=== PATIENT | female | born 1995 | race Caucasian/White ===

== ENCOUNTER → 2021-02-17 09:31 | Outpatient (CLI) | payer OTHER, SELFPAY ==
[2021-02-17 20:33] LABS: SARS-CoV-2 RNA PCR Positive
== END ==
PROVIDERS: PCP Family Medicine; Visit Provider Physician Assistant
DX: U07.1 COVID-19 (principal)
CPT/HCPCS: C9803; U0003; U0005

== ENCOUNTER 2021-07-20 10:56 | Outpatient (CLI) | payer OTHER, SELFPAY ==
[2021-07-20 11:57] VITALS: BP 145/74; PULSE 112
[2021-07-20 12:01] VITALS: BP 133/79; PULSE 104
[2021-07-20 12:04] LABS: Basophils Percent Auto 0.3 % (0.2-1.2); Eosinophils Absolute Auto 0.2 K/mm3 (0-0.3); Eosinophils Percent Auto 1.6 % (0-4.4); Hematocrit 34.1 % (37.0-47.0); Hemoglobin 10.7 g/dL (12.0-15.0); Immature Granulocyte Absolute 0.06 K/mm3 (0.00-0.031); Immature Granulocyte Percent A 0.7 % (0-0.5); Lymphocytes Absolute Auto 1.11 K/mm3 (0.9-3.2); Mean Corpuscular HGB Conc 31.4 g/dl (32-36); Mean Corpuscular Hemoglobin 27.3 pg (26-34); Mean Platelet Volume 11.3 fl (7.4-10.4); Monocytes Absolute Auto 0.5 K/mm3 (0.1-0.6); Monocytes Percent Auto 5.1 % (2.6-8.5); Neutrophils Absolute Auto 7.4 K/mm3 (1.3-6.7); Neutrophils Percent Auto 80.3 % (45.5-73.1); Platelet Count Result 248 k/mm3 (150-375); Red Blood Count 3.92 M/mm3 (4.2-5.4); Red Cell Distribution Width 16.5 % (11.5-14.5); White Blood Count 9.2 K/mm3 (4.5-10.0)
[2021-07-20 12:07] LABS: Add Urine Microscopic? YES; Appearance Urine Clear (Clear); Bilirubin Urine Negative (Negative); Blood Urine Negative (Negative); Color Urine Yellow (Yellow); Glucose Urine UA Negative (Negative); Ketones Urine Negative (Negative); Leukocyte Esterase Ur 1+ LEU/UL (NEGATIVE); Nitrate Urine Negative (Negative); Protein Urine Negative (Negative); Urobilinogen Urine 0.2 mg/dL (<2.0); pH Urine 6.5 (5.0-9.0)
[2021-07-20 12:12] LABS: Bacteria Urine Trace /hpf; Mucus Urine Rare /lpf; RBC Urine 0-2 /hpf (0-2); Squamous Epithelial Cell Urine Occasional /hpf (Few); WBC Urine 0-3 /hpf (0-3)
[2021-07-20 12:15] LABS: Creatinine Urine 29.5 mg/dL; Total Protein Urine Random 12 mg/dL; Ur Ttl Prot Creatinine Ratio 0.41 mg/mg (0-0.20)
[2021-07-20 12:16] VITALS: BP 135/80; PULSE 105
[2021-07-20 12:27] LABS: Alanine Aminotransferase 12 U/L (6-35); Albumin Level 3.4 g/dL (3.5-5.1); Alkaline Phosphatase 102 U/L (38-126); Anion Gap 6 mmol/L (8-16); Aspartate Amino Transferase 19 U/L (14-36); Bilirubin,Total 0.2 mg/dL (0.2-1.3); Blood Urea Nitrogen 6 mg/dL (7-17); Calcium 8.5 mg/dL (8.4-10.2); Carbon Dioxide 23 mmol/L (22-30); Chloride 105 mmol/L (98-107); Estimated Glomerular Filt Rate > 60; Glucose 148 mg/dL (65-110); Potassium 3.6 mmol/L (3.4-5.0); Sodium 134 mmol/L (137-145); Uric Acid 4.4 mg/dL (2.5-7.5)
[2021-07-20 12:31] VITALS: BP 134/75; PULSE 100
[2021-07-20 12:46] VITALS: BP 142/106; PULSE 99
[2021-07-20 13:08] LABS: HIV 1/2 Ab P24 Ag Result Negative (Negative)
== END 2021-07-20 12:55 | disposition home or self-care (01) ==
LOC: ANHOBOP 11:18 → ANHOBPP 11:19
PROVIDERS: PCP Family Medicine; Visit Provider Student in an Organized Health Care Education/Training Program
DX: O13.3 Gestational [pregnancy-induced] hypertension without significant proteinuria, third trimester (principal); Z3A.32 32 weeks gestation of pregnancy
CPT/HCPCS: 36415; 59025; 80053; 81001; 82570; 84156; 84550; 85025; 86703; 87086; 99199; G0432

== ENCOUNTER 2021-07-21 12:04 | Outpatient (NON) | payer OTHER, SELFPAY ==
[2021-07-21 12:50] VITALS: BMI 54.2
[2021-07-21 13:40] LABS: Collection Time Urine 24 HOURS
[2021-07-21 13:45] LABS: Specific Gravity Ur 1.015; Total Volume 24 Hour Urine 2500 ml
[2021-07-21 14:24] LABS: Creatinine Clearance Urine 167.2 ml/min (75-125); Creatinine Urine 61.1 mg/dL; Patient Weight 287 Lbs; Total Protein Urine 24 Hr 300 mg/24hr (28-141); Total Protein Urine Random 12 mg/dL
== END 2021-07-21 12:05 | disposition home or self-care (01) ==
LOC: ANHOBOP 12:44
PROVIDERS: PCP Family Medicine; Visit Provider Student in an Organized Health Care Education/Training Program
DX: R03.0 Elevated blood-pressure reading, without diagnosis of hypertension (principal)
CPT/HCPCS: 81050; 82575; 84156

== ENCOUNTER 2021-07-30 06:37 | Outpatient (CLI) | payer OTHER, SELFPAY ==
[2021-07-30 06:54] VITALS: BP 151/84; PULSE 116
[2021-07-30 07:15] LABS: Appearance Urine Clear (Clear); Basophils Percent Auto 0.2 % (0.2-1.2); Bilirubin Urine Negative (Negative); Blood Urine Negative (Negative); Color Urine Yellow (Yellow); Eosinophils Absolute Auto 0.2 K/mm3 (0-0.3); Eosinophils Percent Auto 1.7 % (0-4.4); Glucose Urine UA Negative (Negative); Hematocrit 34.1 % (37.0-47.0); Hemoglobin 11.2 g/dL (12.0-15.0); Immature Granulocyte Absolute 0.05 K/mm3 (0.00-0.031); Immature Granulocyte Percent A 0.5 % (0-0.5); Ketones Urine Negative (Negative); Leukocyte Esterase Ur Trace LEU/UL (NEGATIVE); Lymphocytes Absolute Auto 1.33 K/mm3 (0.9-3.2); Lymphocytes Percent Auto 13.5 % (18.3-44.2); Mean Corpuscular HGB Conc 32.8 g/dl (32-36); Mean Corpuscular Hemoglobin 28.1 pg (26-34); Mean Corpuscular Volume 85.5 fl (80-100); Mean Platelet Volume 11.5 fl (7.4-10.4); Monocytes Absolute Auto 0.7 K/mm3 (0.1-0.6); Monocytes Percent Auto 6.6 % (2.6-8.5); Neutrophils Absolute Auto 7.7 K/mm3 (1.3-6.7); Neutrophils Percent Auto 77.5 % (45.5-73.1); Nitrate Urine Negative (Negative); Platelet Count Result 245 k/mm3 (150-375); Protein Urine 1+ mg/dL (Negative); Red Blood Count 3.99 M/mm3 (4.2-5.4); Red Cell Distribution Width 16.1 % (11.5-14.5); Specific Grav Ur 1.025 (1.001-1.035); Urobilinogen Urine 0.2 mg/dL (<2.0); White Blood Count 9.9 K/mm3 (4.5-10.0); pH Urine 6.5 (5.0-9.0)
[2021-07-30 07:16] VITALS: BP 150/76; PULSE 107
[2021-07-30 07:20] VITALS: TEMP 36.1
[2021-07-30 07:20] LABS: Bacteria Urine Trace /hpf; Mucus Urine Rare /lpf; RBC Urine 0-2 /hpf (0-2); Squamous Epithelial Cell Urine Few /hpf (Few); WBC Urine 0-3 /hpf (0-3)
[2021-07-30 07:27] LABS: Alanine Aminotransferase 12 U/L (6-35); Albumin Level 3.5 g/dL (3.5-5.1); Alkaline Phosphatase 106 U/L (38-126); Anion Gap 7 mmol/L (8-16); Aspartate Amino Transferase 18 U/L (14-36); Bilirubin,Total 0.2 mg/dL (0.2-1.3); Blood Urea Nitrogen 7 mg/dL (7-17); Calcium 8.9 mg/dL (8.4-10.2); Carbon Dioxide 23 mmol/L (22-30); Chloride 106 mmol/L (98-107); Estimated Glomerular Filt Rate > 60; Glucose 135 mg/dL (65-110); Potassium 3.9 mmol/L (3.4-5.0); Sodium 136 mmol/L (137-145); Uric Acid 4.8 mg/dL (2.5-7.5)
[2021-07-30 07:29] LABS: Add Urine Microscopic? YES
[2021-07-30 07:31] VITALS: BP 135/68; PULSE 109
--- NOTE | 2021-07-30 07:45 | PC.NURSE ---
Dr. Cuevas called with labs, vs and assessment. Pt denies RUQ pain, no visual changes. Discharge orders obtained.
[2021-07-30 07:46] VITALS: BP 144/81; PULSE 101
[2021-07-30 07:55] VITALS: BP 144/81; PULSE 104
[2021-07-30 10:54] LABS: Creatinine Urine 209.5 mg/dL; Total Protein Urine Random 18 mg/dL; Ur Ttl Prot Creatinine Ratio 0.09 mg/mg (0-0.20)
== END 2021-07-30 07:59 | disposition home or self-care (01) ==
LOC: ANHOBOP 06:40 → ANHOBPP 06:40
PROVIDERS: Obstetrics & Gynecology; PCP Family Medicine; Visit Provider Student in an Organized Health Care Education/Training Program
DX: O13.9 Gestational [pregnancy-induced] hypertension without significant proteinuria, unspecified trimester (principal); Z3A.00 Weeks of gestation of pregnancy not specified
CPT/HCPCS: 36415; 59025; 80053; 81001; 82570; 84112; 84156; 84550; 85025; 87086; 99199

== ENCOUNTER 2021-08-02 10:53 | Outpatient (RCR) | payer OTHER, SELFPAY ==
[2021-08-01] MEDS: BETAMETHASONE SOD PHOS/ACETATE 30 MG/5 ML VIAL 12 MG IM (11:24)
[2021-08-02] MEDS: BETAMETHASONE SOD PHOS/ACETATE 30 MG/5 ML VIAL 12 MG IM (11:07)
== END 2021-08-02 11:11 | disposition home or self-care (01) ==
LOC: ANHOBOP 10:53
PROVIDERS: PCP Family Medicine; Visit Provider Student in an Organized Health Care Education/Training Program
DX: O36.8990 Maternal care for other specified fetal problems, unspecified trimester, not applicable or unspecified (principal); Z3A.00 Weeks of gestation of pregnancy not specified
CPT/HCPCS: 59025; 76815; 76819; 96372; J0702

== ENCOUNTER 2021-08-15 07:32 | Outpatient (RCR) | payer OTHER, SELFPAY ==
--- NOTE | 2021-08-01 10:39 | PC.NURSE ---
Dr Cuevas notified of contractions, sve ordered. No need to repeat labs from this weekend.
[2021-08-01 10:43] VITALS: BP 152/67; PULSE 100
[2021-08-08 08:01] VITALS: BP 103/88; PULSE 94
[2021-08-08 08:04] LABS: Hematocrit 35.4 % (37.0-47.0); Hemoglobin 11.2 g/dL (12.0-15.0); Mean Corpuscular HGB Conc 31.6 g/dl (32-36); Mean Corpuscular Hemoglobin 27.6 pg (26-34); Mean Corpuscular Volume 87.2 fl (80-100); Mean Platelet Volume 11.7 fl (7.4-10.4); Platelet Count Result 237 k/mm3 (150-375); Red Blood Count 4.06 M/mm3 (4.2-5.4); Red Cell Distribution Width 16.2 % (11.5-14.5)
[2021-08-08 08:14] LABS: Alanine Aminotransferase 12 U/L (6-35); Albumin Level 3.4 g/dL (3.5-5.1); Alkaline Phosphatase 102 U/L (38-126); Anion Gap 5 mmol/L (8-16); Aspartate Amino Transferase 17 U/L (14-36); Bilirubin,Total < 0.1 mg/dL (0.2-1.3); Blood Urea Nitrogen 8 mg/dL (7-17); Calcium 9.1 mg/dL (8.4-10.2); Carbon Dioxide 24 mmol/L (22-30); Chloride 103 mmol/L (98-107); Estimated Glomerular Filt Rate > 60; Glucose 157 mg/dL (65-110); Potassium 4.3 mmol/L (3.4-5.0); Sodium 132 mmol/L (137-145)
[2021-08-08 08:16] VITALS: BP 103/48; PULSE 103
[2021-08-08 08:18] LABS: Uric Acid 4.2 mg/dL (2.5-7.5)
[2021-08-08 08:30] VITALS: BP 119/63; PULSE 85
--- NOTE | 2021-08-08 08:40 | PC.NURSE ---
Dr. Salguero updated with strip, bp and labs. Dr. Salguero aware [facility] not back yet. Okay for pt to go home.
[2021-08-08 08:48] VITALS: BP 103/88; PULSE 103
[2021-08-08 11:37] LABS: Lactate Dehydrogenase 322 U/L (313-618)
--- NOTE | ~2021-08-15 | US_ITS ---
EXAMINATION: US OB limited w BPP DATE: 08/01/2021 10:23 INDICATION: Hypertension. Third trimester. TECHNIQUE: Real-time pelvic ultrasound was performed. COMPARISON: None. FINDINGS: There is a single living fetus in vertex presentation. The placenta is anterior. heart rate is 157 beats per minute (bpm). The index fluid index is 13.1 cm, which is normal. Biophysical profile performed by the technologist: breathing (30 sec sustained breathing in 30 minutes): 2 out of 2 movement (3 gross body movements in 30 minutes): 2 out of 2 tone (one episode of ghuhjmm-fkpuhuhzk-amarfrr limb movement): 2 out of 2 Amniotic fluid pocket (2 cm): 2 out of 2 Total score: 8 out of 8 IMPRESSION: 1. Single living fetus in vertex presentation. 2. Biophysical profile 8 out of 8. Reviewed, dictated and finalized at location B.
[2021-08-15 08:05] LABS: Basophils Percent Auto 0.4 % (0.2-1.2); Eosinophils Absolute Auto 0.1 K/mm3 (0-0.3); Eosinophils Percent Auto 1.5 % (0-4.4); Hematocrit 35.5 % (37.0-47.0); Hemoglobin 11.4 g/dL (12.0-15.0); Immature Granulocyte Absolute 0.05 K/mm3 (0.00-0.031); Immature Granulocyte Percent A 0.6 % (0-0.5); Lymphocytes Percent Auto 17.6 % (18.3-44.2); Mean Corpuscular HGB Conc 32.1 g/dl (32-36); Mean Corpuscular Hemoglobin 27.6 pg (26-34); Mean Platelet Volume 11.7 fl (7.4-10.4); Monocytes Absolute Auto 0.6 K/mm3 (0.1-0.6); Neutrophils Absolute Auto 6.6 K/mm3 (1.3-6.7); Neutrophils Percent Auto 72.9 % (45.5-73.1); Platelet Count Result 241 k/mm3 (150-375); Red Blood Count 4.13 M/mm3 (4.2-5.4); Red Cell Distribution Width 15.5 % (11.5-14.5); White Blood Count 9.1 K/mm3 (4.5-10.0)
[2021-08-15 08:17] LABS: Alanine Aminotransferase 10 U/L (6-35); Alkaline Phosphatase 108 U/L (38-126); Anion Gap 3 mmol/L (8-16); Aspartate Amino Transferase 16 U/L (14-36); Bilirubin,Total < 0.1 mg/dL (0.2-1.3); Blood Urea Nitrogen 11 mg/dL (7-17); Calcium 9.1 mg/dL (8.4-10.2); Carbon Dioxide 23 mmol/L (22-30); Chloride 105 mmol/L (98-107); Estimated Glomerular Filt Rate > 60; Glucose 114 mg/dL (65-110); Lactate Dehydrogenase 305 U/L (313-618); Potassium 4.3 mmol/L (3.4-5.0); Sodium 131 mmol/L (137-145); Uric Acid 5.6 mg/dL (2.5-7.5)
[2021-08-15 08:41] VITALS: BP 158/89; PULSE 103
== END 2021-08-30 10:51 | disposition home or self-care (01) ==
LOC: ANHOBOP 07:32
PROVIDERS: PCP Family Medicine; Visit Provider Student in an Organized Health Care Education/Training Program
DX: O16.3 Unspecified maternal hypertension, third trimester (principal); Z3A.34 34 weeks gestation of pregnancy
CPT/HCPCS: 36415; 59025; 76815; 76819; 80053; 83615; 84550; 85025; 85027

== ENCOUNTER 2021-08-19 00:01 | Inpatient (IN) | payer OTHER, SELFPAY ==
[2021-08-19] VITALS (95 sets, daily range): BP systolic 107–162; BP diastolic 56–102; PULSE 99–121; TEMP 36.3–36.6; O2SAT 91–100; BMI 54.8
[2021-08-19 00:33] LABS: Basophils Percent Auto 0.2 % (0.2-1.2); Eosinophils Absolute Auto 0.1 K/mm3 (0-0.3); Eosinophils Percent Auto 1.2 % (0-4.4); Hematocrit 37.4 % (37.0-47.0); Hemoglobin 11.9 g/dL (12.0-15.0); Immature Granulocyte Absolute 0.08 K/mm3 (0.00-0.031); Immature Granulocyte Percent A 0.8 % (0-0.5); Lymphocytes Absolute Auto 1.99 K/mm3 (0.9-3.2); Lymphocytes Percent Auto 18.8 % (18.3-44.2); Mean Corpuscular HGB Conc 31.8 g/dl (32-36); Mean Corpuscular Hemoglobin 27.7 pg (26-34); Mean Platelet Volume 12.3 fl (7.4-10.4); Monocytes Absolute Auto 0.7 K/mm3 (0.1-0.6); Monocytes Percent Auto 6.8 % (2.6-8.5); Neutrophils Absolute Auto 7.7 K/mm3 (1.3-6.7); Neutrophils Percent Auto 72.2 % (45.5-73.1); Platelet Count Result 239 k/mm3 (150-375); Red Cell Distribution Width 15.7 % (11.5-14.5); White Blood Count 10.6 K/mm3 (4.5-10.0)
--- NOTE | 2021-08-19 00:33 | LDADM ---
This patient, Candace Green, was admitted to Labor/Delivery/Recovery 105 on 08/18/21 at 00:01. Plans for labor, pain management and were discussed with patient. Patient/family oriented to hospital policies and general routines including ID bracelet, bed and alarms, visiting hours, pain management, procedures, bathroom and other care routines, personal items, smoking policy, room service/diet and guest tray routines, security routines, and visiting hours. Patient/Family are encouraged to report perceived risks to care and to ask questions if they do not understand what they are told or what they should do. See OBIX for further documentation.
[2021-08-19 00:41] LABS: Uric Acid 6.4 mg/dL (2.5-7.5)
[2021-08-19 01:01] LABS: Potassium 4.1 mmol/L (3.4-5.0)
[2021-08-19 01:05] LABS: Alanine Aminotransferase 12 U/L (6-35); Albumin Level 3.3 g/dL (3.5-5.1); Alkaline Phosphatase 116 U/L (38-126); Anion Gap 4 mmol/L (8-16); Aspartate Amino Transferase 18 U/L (14-36); Bilirubin,Total < 0.1 mg/dL (0.2-1.3); Blood Urea Nitrogen 17 mg/dL (7-17); Calcium 9.4 mg/dL (8.4-10.2); Carbon Dioxide 25 mmol/L (22-30); Chloride 107 mmol/L (98-107); Estimated CRCL calculation 135 ml/min; Estimated Glomerular Filt Rate > 60; Glucose 90 mg/dL (65-110); Sodium 136 mmol/L (137-145)
[2021-08-19] MEDS: DINOPROSTONE 10 MG VAG INSERT VAGINAL (01:13)
[2021-08-19 07:35] LABS: Rapid Plasma Reagin Non-Reactive (NonReactive)
--- NOTE | 2021-08-19 12:55 | PM.IMHP ---
H&P: HPI History of Present Illness Date/Time: 08/19/21 12:55 Chief Complaint: Preeclampsia Narrative: Patient is a 25-year-old LMP 12/03/2020 currently 37 weeks gestation with TAURUS 09/09/21. Patient is dated by LMP consistent with ultrasound on 02/03/2021 at 8 weeks gestation. Patient presents to labor and delivery for scheduled induction of labor secondary to preeclampsia without severe features. Patient was diagnosed with preeclampsia several weeks ago. She has been monitored closely and decision was made to proceed with delivery at 37 weeks gestation. In general, patient doing well without complaints. Denies any headache, chest pain, shortness of breath, nausea, vomiting, right upper quadrant tenderness, or visual disturbances. Patient also denies any vaginal bleeding, leakage of fluid, or contractions. Reports good movement. Review of Systems Review of Systems: All systems reviewed & are unremarkable except as noted in HPI and below Constitutional: Constitutional: Reports as per HPI and Reports no additional constitutional complaints Eyes: Eyes: Reports as per HPI and Reports no additional eye complaints ENT: Reports system reviewed and no additional complaints, except as documented and Reports as per HPI Cardiovascular: Cardiovascular: Reports as per HPI and Reports no additional cardiovascular complaints Respiratory: Respiratory: Reports as per HPI and Reports no additional respiratory complaints Gastrointestinal: Gastrointestinal: Reports as per HPI and Reports no additional gastrointestinal complaints Genitourinary: Genitourinary: Reports no additional female genitourinary complaints and Reports as per HPI Musculoskeletal: Musculoskeletal: Reports no additional musculoskeletal complaints and Reports as per HPI Integumentary/Breasts: Skin/Breast: Reports system reviewed and no additional complaints, except as docu and Reports as per HPI Neurologic: Reports system reviewed and no additional complaints, except as documented and Reports as per HPI Psychiatric: Psychiatric: Reports no additional psychiatric complaints and Reports as per HPI Endocrine: Endocrine: Reports no additional endocrine complaints and Reports as per HPI Hematologic/Lymphatic: Hematologic/Lymphatic: Reports no additional hematologic/lymphatic complaints and Reports as per HPI Allergic/Immunologic: Allergic/Immunologic: Reports no additional allergic/immunologic complaints and Reports as per HPI PMF Past Medical History Medical History Depression Seasonal allergies Surgical History Surgical History [place] teeth removed 2014 Family History Family History Grandparent Diabetes mellitus Family history of lung cancer Mother Diabetes mellitus Melanoma Social History Social History Smoking status: Never smoker Second hand tobacco smoke exposure: No Alcohol intake: never Substance use: never Substance use type: does not use Gender identity (if verbalized by the patient): Female Spiritual care concerns: No Meds Home Medications and Allergies Home Medications Medication Instructions Recorded Confirmed Type prenat.vits,manfred,zis-mfac-xzwdn 1 tablet PO DAILY 11/04/20 08/19/21 History cetirizine 10 mg tablet (Zyrtec) 10 mg PO DAILY PRN Allergy Symptoms 11/29/20 08/19/21 History ferrous sulfate 325 mg (65 mg 325 mg PO DAILY #90 tabs 06/06/21 08/19/21 Rx iron) tablet sertraline 100 mg tablet 100 mg PO DAILY #30 tabs 06/14/21 08/19/21 Rx cholecalciferol (vitamin D3) 50 50 mcg PO DAILY 08/11/21 08/19/21 History mcg (2,000 unit) tablet (Vitamin D3) Allergies Allergy/AdvReac Type Severity Reaction Status Date / Time No Known Allergies Allergy Verified 08/19/21 00:55 Vital Sig
[2021-08-19] MEDS: LACTATED RINGERS 1,000 ML 125 ML IV CONT ×2 (14:32→22:07)
[2021-08-19] MEDS: OXYTOCIN 30 UNITS/NS 500 ML 30 UNITS/500 ML BAG 6 UNITS IV CONT (14:33)
--- NOTE | 2021-08-19 17:37 | PM.OBPNLAB ---
Pain Control Date/time seen: 08/19/21 17:37 Comments: Patient doing well. Reports feeling contractions a little bit. Pelvic Exam Comments: 2.5/70/-2, AROM performed, clear fluid noted Status Comments: EFM category 1 [place]: ctx 2-4 mins. Assessment and Plan Comments: Continue pitocin Continuous EFM and toco Monitor vitals and symptoms Pain management PRN
--- NOTE | 2021-08-19 18:25 | WPDANESEPP ---
Anes - Eval Pre Procedure Procedure: Labor epidural Date/Time: 08/19/21 18:25 Surgeon: jeremiah Pre Op Diagnosis: Induction of Labor Patient Data Age: 25 Gender: F Height: 1.55 m Weight: 131.75 kg Last Vital Signs Temp 36.3 C L 08/19/21 18:20 Pulse 101 H 08/19/21 18:01 BP 157/79 H 08/19/21 18:01 O2 Del Method Room Air 08/19/21 00:28 Allergies Allergy/AdvReac Type Severity Reaction Status Date / Time No Known Allergies Allergy Verified 08/19/21 00:55 Home Medications Medication Instructions Recorded Confirmed Type prenat.vits,manfred,opx-iquv-cpsko 1 tablet PO DAILY 11/04/20 08/19/21 History cetirizine 10 mg tablet (Zyrtec) 10 mg PO DAILY PRN Allergy Symptoms 11/29/20 08/19/21 History ferrous sulfate 325 mg (65 mg 325 mg PO DAILY #90 tabs 06/06/21 08/19/21 Rx iron) tablet sertraline 100 mg tablet 100 mg PO DAILY #30 tabs 06/14/21 08/19/21 Rx cholecalciferol (vitamin D3) 50 50 mcg PO DAILY 08/11/21 08/19/21 History mcg (2,000 unit) tablet (Vitamin D3) Laboratory Tests 08/19/21 08/19/21 08/19/21 00:26 00:26 00:26 WBC 10.6 K/mm3 H K/mm3 (4.5-10.0) RBC 4.30 M/mm3 M/mm3 (4.2-5.4) Hgb 11.9 g/dL L g/dL (12.0-15.0) Hct 37.4 % % (37.0-47.0) MCV 87.0 fl fl (80-100) MCH 27.7 pg pg (26-34) MCHC 31.8 g/dl L g/dl (32-36) RDW 15.7 % H % (11.5-14.5) Plt Count 239 k/mm3 k/mm3 (150-375) MPV 12.3 fl H fl (7.4-10.4) Immature Gran % (Auto) 0.8 % H % (0-0.5) Neut % (Auto) 72.2 % % (45.5-73.1) Lymph % (Auto) 18.8 % % (18.3-44.2) [place] % (Auto) 6.8 % % (2.6-8.5) Eos % (Auto) 1.2 % % (0-4.4) Baso % (Auto) 0.2 % % (0.2-1.2) Lymph # (Auto) 1.99 K/mm3 K/mm3 (0.9-3.2) [place] # (Auto) 0.7 K/mm3 H K/mm3 (0.1-0.6) Eos # (Auto) 0.1 K/mm3 K/mm3 (0-0.3) Baso # (Auto) 0.0 K/mm3 K/mm3 (0.0-0.1) Abs Immat Gran (auto) 0.08 K/mm3 H K/mm3 (0.00-0.031) Absolute Neuts (auto) 7.7 K/mm3 H K/mm3 (1.3-6.7) Absolute Nucleated RBC 0.0 K/mm3 K/mm3 (0.0-0.012) Nucleated RBC % 0.0 % % (0.0-0.2) Sodium Potassium Chloride Carbon Dioxide Anion Gap BUN Creatinine Estim Creat Clear Calc Estimated GFR Glucose Uric Acid 6.4 mg/dL mg/dL (2.5-7.5) Calcium Total Bilirubin AST ALT Alkaline Phosphatase Total Protein Albumin RPR Non-reactive (NonReactive) Blood Type Antibody Screen 08/19/21 08/19/21 00:26 00:48 WBC RBC Hgb Hct MCV MCH MCHC RDW Plt Count MPV Immature Gran % (Auto) Neut % (Auto) Lymph % (Auto) [place] % (Auto) Eos % (Auto) Baso % (Auto) Lymph # (Auto) [place] # (Auto) Eos # (Auto) Baso # (Auto) Abs Immat Gran (auto) Absolute Neuts (auto) Absolute Nucleated RBC Nucleated RBC % Sodium 136 mmol/L L mmol/L (137-145) Potassium 4.1 mmol/L mmol/L (3.4-5.0) Chloride 107 mmol/L mmol/L (98-107) Carbon Dioxide 25 mmol/L mmol/L (22-30) Anion Gap 4 mmol/L L mmol/L (8-16) BUN 17 mg/dL mg/dL (7-17) Creatinine 0.70 mg/dL mg/dL (0.7-1.0) Estim Creat Clear Calc 135 ml/min ml/min Estimated GFR > 60 (59 - ) Glucose 90 mg/dL mg/dL (65-110) Uric Acid Calcium 9.4 mg/dL mg/dL (8.4-10.2) Total Bilirubin < 0.1 mg/dL L mg/dL (0.2-1.3) AST 18 U/L U/L (14-36) ALT 12 U/L
[2021-08-20] VITALS (250 sets, daily range): BP systolic 89–158; BP diastolic 52–126; PULSE 88–118; RESP 13–18; TEMP 36.1–37.2; O2SAT 89–100
[2021-08-20] MEDS: LACTATED RINGERS 1,000 ML 125 ML IV CONT (05:09)
[2021-08-20] MEDS: LORATADINE 10 MG TABLET PO (07:00)
--- NOTE | 2021-08-20 08:56 | PM.OBPNLAB ---
Pain Control Date/time seen: 08/20/21 08:56 Patient doing well s/p epidural. Asymptomatic. Pelvic Exam Comments: /-2, moderate caput noted Status Comments: EFM category 1 [place] shows contractions q2-[address] Assessment and Plan Comments: SVE essentially unchanged for almost seven hours, however, pitocin was decreased periodically for periods of tachysystole and subsequently increased when resolved. Situation discussed with patient regarding minimal cervical change and development of caput, which may indicate that a vaginal delivery is becoming less likely. Plan at this time is to continue pitocin for an additional 2-3 hours and reevaluate. If cervical exam remains unchanged at that time, will likely recommend proceeding with section for delivery. Patient made aware of this tentative plan, implied an understanding, and agrees. Will begin GBS prophylaxis at 18 hours ruptured. Continue to monitor vitals and symptoms. BP currently WNL.
[2021-08-20] MEDS: AMPICILLIN 2 GM/NS 100 ML 2 GM/100 ML BAG IVPB (11:30)
--- NOTE | 2021-08-20 12:31 | P.PNOB_ITS ---
Pain Control Date/time seen: 08/20/21 12:31 Patient doing well. Asymptomatic. Pelvic Exam Comments: /-2, moderate caput noted Status Comments: EFM category 1 [place] shows contractions q2-3 mins. Assessment and Plan Comments: Cervical exam unchanged. Situation discussed with patient and as well as low likelihood of successful vaginal delivery. Recommendation made to proceed with section for arrest of dilation. Risks and benefits of section reviewed. Patient implied an understanding and agrees with plan. All questions and concerns addressed. Anesthesia notified.
--- NOTE | 2021-08-20 12:46 | P.PNAN_ITS ---
Anes - Eval Final PreProcedure Day of Procedure 08/20/21 12:46 Patient weight: morbidly obese Heart: regular rate and rhythm Lungs: clear to auscultation Airway: Mallampati scale class II Neurological: alert and oriented ASA classification: III Emergent: no Anesthetic plan: proceed Anesthesia type and monitoring: regional epidural and standard monitoring Results Review: All pre-operative results and documents have been reviewed as part of the pre- operative evaluation. will use epid for c/s Informed Consent: The patient's anesthetic plan and its attendant risks and benefits were discussed with the patient/family/POA. Questions were solicited and answers provided to the satisfaction of the patient/family/POA.
[2021-08-20] MEDS: ceFAZolin 3 GM/D5W 100 ML 100 ML IVPB (12:55)
--- NOTE | 2021-08-20 14:31 | W.PM.PROC2 ---
Procedure Note - Detailed Date of Procedure 08/20/21 Pre-op Diagnosis Intrauterine at 37 weeks 1 day gestation Preeclampsia without severe features Arrest of dilation Post-op Diagnosis Same Procedure Performed Primary low transverse section via Pfannenstiel Surgeon Helen Salguero MD Core Carrier Meg Dowling Anesthesia Epidural Findings Live male infant in right occiput transverse presentation, bloody amniotic fluid, apgars 3,6,6,7, weighing 7 lbs. 6 oz.; normal appearing uterus, ovaries, and fallopian tubes bilaterally Description of Procedure The patient was taken to the operating room, where she was transferred to the operating room table. Epidural anesthesia was administered and found to be adequate. The patient was placed in dorsal supine position with a leftward tilt. She was prepped and draped in the usual sterile fashion. A Pfannenstiel skin incision was made with a scalpel and carried through to underlying layer of fascia with the Bovie. The fascia was incised in the midline and the incision was extended laterally with the use of forceps and Ramirez scissors. The inferior aspect of the fascial incision was grasped with Estefania clamps, elevated, and the underlying rectus muscle were dissected off with Ramirez scissors. Attention was then turned to the superior aspect of the fascial incision, which in a similar manner, was grasped with Estefania clamps, elevated, and the underlying rectus muscles were also dissected off with Ramirez scissors. The rectus muscles were in the midline and the peritoneal cavity was entered bluntly. This incision was extended superiorly and inferiorly with good visualization of the bladder and care was taken to avoid blood vessels. An Wilmer retractor was inserted and rolled to enhance visualization. A bladder blade was inserted. The vesicouterine peritoneum was identified and incised sharply with Metzenbaum scissors. This incision was extended laterally with Metzenbaum scissors and a bladder flap was created digitally. The bladder blade was replaced. A low-transverse uterine incision was made with a scalpel. This incision was extended laterally with bandage scissors. Amniotomy was performed. Bloody amniotic fluid was noted. The 's head was noted to be in right occiput transverse presentation. 's head was grasped and gently guided to the level of the uterine incision. The 's head was delivered easily and atraumatically without difficulty followed by the neck, shoulders, and rest of body with gentle fundal pressure. The infant's nose and mouth were suctioned with bulb suction. The cord was clamped and cut and the infant was handed off to awaiting nursing staff. A segment of cord was collected for cord gases. Cord blood was also collected. The placenta was then delivered manually with gentle uterine massage. Uterus was left in situ and cleared of all clots and debris. The uterine incision was reapproximated with 0 Vicryl in a running, locked fashion. A second imbricating layer using 0 Monocryl performed. An area inferior to the incision in the midline was bleeding and made hemostatic with a short running segment of 0 Monocryl. Excellent hemostasis was noted. On inspection, the uterus, ovaries, and fallopian tubes appeared to be normal bilaterally. The Wilmer retractor was removed. The gutters were cleared of all clots and debris. The uterine incision was inspected again and noted to be hemostatic. Hemaderm was applied across the uterine incision. Interceed was also applied across the uterine incision and anterior surface of the uterus. The peritoneum was reapproximated with 2-0 Monocryl. The fascia was then closed with 0 Vicryl in a running fashion. The subcutaneous layer was irrigated with water. Pinpoint areas of bleeding were made hemostatic with Bovie. The subcutaneous layer was reapproximated with 2-0 plain and the skin was then closed with 4-0 Monocryl in a subcuticular fashion. The skin was cleansed a
--- NOTE | 2021-08-20 15:01 | P.PCNOB_ITS ---
OB - Delivery Note Procedure Delivery date: 08/20/21 Procedure: Procedures Operation Date: 08/20/21 13:00 Actual Procedure Side Surgeon p Section Helen Salguero MD Events: Preeclampsia w/o severe features Intrapartal Events: Arrest of Dilation Induction method: Per Cervidil Protocol Delivery augmentation: Rupture of Membranes and Pitocin Delivery monitor: External FHT, External Uterine and Internal Uterine Route of delivery: Prior to decision for section, ACOG/SMFM labor guidelines were considered and discussed with the patient and staff. Decision made to proceed with the section.: Yes Specimen: Yes (placenta and cord, cord blood and cord gases) Quantitative Blood Loss (ml): 915 Anesthesia type: Epidural Disposition: PACU Complications: No immediate complications [place] Baby Date of : 08/20/21 Time of : 13:25 Weeks of gestation at delivery: 37 gender: Male Weight (pounds): 7 Weight (ounces): 6 presentation: transverse position: Right Occiput Transverse Placenta delivery description: Manual Removal Cord Vessel Description: 3 Vessels and Clamped/Cut score one minute: 3 score five minutes: 6 score ten minutes: 6 AMG Delivery Billing Delivery Delivery: Delivery Charge
[2021-08-20] MEDS: OXYTOCIN 30 UNITS/NS 500 ML 30 UNITS/500 ML BAG 125 UNITS IV CONT (15:13)
[2021-08-20] MEDS: KETOROLAC 30 MG/ML VIAL (*BKC) IV PUSH (16:28)
--- NOTE | 2021-08-20 18:41 | OBPPTRN ---
1718Patient transferred to post room #280 via stretcher. Support person present. Oriented to unit, room, information board, rooming in, admission packet and security measures. Patient verbalizes understanding.
[2021-08-20] MEDS: KCL 20 MEQ/D5/0.45% SOD CHL 1,000 ML 125 ML IV CONT (19:45)
[2021-08-20] MEDS: LANOLIN (LANSINOH) 7.5 GM CREAM 1 APPLIC TOPICAL (19:46)
[2021-08-20] MEDS: IBUPROFEN 600 MG TABLET PO (23:29)
[2021-08-21] MEDS: DEXTROSE 5%/0.45% SOD CHL 1,000 ML 125 ML IV CONT (04:02)
[2021-08-21 04:05] VITALS: BP 127/78; PULSE 87; RESP 16; TEMP 36; O2SAT 97
[2021-08-21] MEDS: HYDROcodone/acetaminophen (*CRX) 5-325 MG TABLET 1 TAB PO ×2 (04:18→08:53)
[2021-08-21 04:31] LABS: Basophils Percent Auto 0.2 % (0.2-1.2); Hematocrit 25.4 % (37.0-47.0); Hemoglobin 8.2 g/dL (12.0-15.0); Immature Granulocyte Absolute 0.17 K/mm3 (0.00-0.031); Immature Granulocyte Percent A 0.9 % (0-0.5); Lymphocytes Absolute Auto 1.56 K/mm3 (0.9-3.2); Lymphocytes Percent Auto 8.6 % (18.3-44.2); Mean Corpuscular HGB Conc 32.3 g/dl (32-36); Mean Corpuscular Hemoglobin 28.2 pg (26-34); Mean Corpuscular Volume 87.3 fl (80-100); Mean Platelet Volume 11.6 fl (7.4-10.4); Monocytes Absolute Auto 0.8 K/mm3 (0.1-0.6); Monocytes Percent Auto 4.6 % (2.6-8.5); Neutrophils Absolute Auto 15.5 K/mm3 (1.3-6.7); Neutrophils Percent Auto 85.7 % (45.5-73.1); Platelet Count Result 165 k/mm3 (150-375); Red Blood Count 2.91 M/mm3 (4.2-5.4); Red Cell Distribution Width 15.4 % (11.5-14.5); White Blood Count 18.1 K/mm3 (4.5-10.0)
--- NOTE | 2021-08-21 07:20 | WPDANLDPN2 ---
Anes-Prog Note L&D Date/Time: 08/21/21 07:20 Comfortable throughout: section Neuro status: Neuro function grossly intact. Cardiovascular status: normal Respiratory status: normal Airway patency: baseline Mental status: baseline Post-Op hydration status: normal Vital Signs: Last Vital Signs Temp 36.0 C L 08/21/21 04:05 Pulse 87 08/21/21 04:05 Resp 16 08/21/21 04:05 BP 127/78 08/21/21 04:05 Pulse Ox 97 08/21/21 04:05 O2 Del Method Room Air 08/20/21 18:31 Pain score (VAS): <3 I/O: Intake & Output 08/20/21 08/20/21 08/21/21 15:59 23:59 07:59 Intake Total 2300 800 500 Output Total 041 497 8182 Balance 1310 345 -750 Post-procedural complaints: none Patient feedback: Patient satisfied with anesthetic care.
--- NOTE | 2021-08-21 07:21 | WPDANLDNPN2 ---
Anes-Prog Note L&D-Neuraxial Date/Time: 08/21/21 07:21 Neuraxial medications: epidural PF morphine Opiod-related complaints: none Patient feedback: Patient satisfied with post-operative pain management.
--- NOTE | 2021-08-21 08:31 | PM.OBPNVD ---
OB - PN: Subj Subjective Date/time seen: 08/21/21 08:31 Patient doing well. Pain well controlled with medication. Denies any headache, chest pain, SOB, N/V, visual disturbances, or RUQ tenderness. Limited ambulation to chair. Catheter in place. Passing flatus. OB - PN: Obj Data Labs CBC & Chem 7: 08/21/21 04:26 08/19/21 00:48 Labs: Laboratory Results - last 24 hr 08/21/21 04:26 WBC 18.1 H RBC 2.91 L Hgb 8.2 L D Hct 25.4 L MCV 87.3 MCH 28.2 MCHC 32.3 RDW 15.4 H Plt Count 165 MPV 11.6 H Immature Gran % (Auto) 0.9 H Neut % (Auto) 85.7 H Lymph % (Auto) 8.6 L [place] % (Auto) 4.6 Eos % (Auto) 0.0 Baso % (Auto) 0.2 Lymph # (Auto) 1.56 [place] # (Auto) 0.8 H Eos # (Auto) 0.0 Baso # (Auto) 0.0 Abs Immat Gran (auto) 0.17 H Absolute Neuts (auto) 15.5 H Absolute Nucleated RBC 0.0 Nucleated RBC % 0.0 OB - PN A/P Assessment and Plan (1) Delivery by section using transverse incision of lower segment of uterus: Code(s): O82 - Encounter for delivery without indication Status: Acute Assessment and Plan: POD#1 doing well continue routine postoperative care encourage ambulation and use of IS pain management PRN will continue to monitor throughout the day, day pass may be possible this afternoon to see infant (2) Preeclampsia: Code(s): O14.90 - Unspecified pre-eclampsia, unspecified trimester Status: Acute Assessment and Plan: doing well BP WNL magnesium sulfate held due to low-normal BP asymptomatic will continue to monitor Time Spent With Patient Time: Total time spent is greater than 50% in coordination of care (as documented) at patient's floor/unit and/or counseling patient: Exam Const: General: cooperative, healthy appearing, comfortable and no acute distress GI: Inspection: non-distended GI Palp: Yes Soft to palpation and No Tenderness to palpation present (GI) Other: inc covered with bandage, c/d/i Skin: General skin exam: normal color and no rashes or lesions noted Extrem: Right lower extremity: edema Details: 1+ Left lower extremity: edema Details: 1+
[2021-08-21] MEDS: IBUPROFEN 600 MG TABLET PO ×3 (08:53→22:00)
[2021-08-21] MEDS: DOCUSATE SODIUM 100 MG CAPSULE PO ×2 (08:54→15:59)
[2021-08-21] MEDS: SIMETHICONE 80 MG TAB.CHEW PO ×3 (08:54→22:00)
[2021-08-21] MEDS: MULTIVIT/MIN/PREN/FOL AC/IRON TABLET 1 TAB PO (08:54)
[2021-08-21] MEDS: POLYSACCHARIDE IRON COMPLEX 150 MG CAPSULE PO ×2 (08:54→15:59)
[2021-08-21] MEDS: SERTRALINE HCL 50 MG TABLET 100 MG PO (09:04)
[2021-08-21 09:39] VITALS: BP 118/82; PULSE 90; RESP 18; TEMP 36.4; O2SAT 96
[2021-08-21 12:35] VITALS: BP 129/72; PULSE 95; RESP 18; TEMP 36.4; O2SAT 97
[2021-08-21] MEDS: HYDROcodone/acetaminophen (*CRX) 10-325 MG TABLET 1 TAB PO ×2 (15:58→22:00)
--- NOTE | 2021-08-21 16:14 | PC.NURSE ---
1604 Left on a therapeutic 4-6 hour pass to visit at [facility]. CHAVEZ Gopal is driving her over. Form signed and put on chart.
[2021-08-21 22:05] VITALS: BP 120/63; PULSE 92; RESP 18; TEMP 36.3; O2SAT 96
--- NOTE | 2021-08-21 22:44 | PC.NURSE ---
08/21/2021 at 2148 Candace and her mother returned from visiting baby at [facility]. Both Mother and Grandmother are all smiles and are sharing pictures of Nitin.
[2021-08-22] MEDS: SIMETHICONE 80 MG TAB.CHEW PO (05:00)
[2021-08-22] MEDS: IBUPROFEN 600 MG TABLET PO (05:00)
[2021-08-22] MEDS: HYDROcodone/acetaminophen (*CRX) 10-325 MG TABLET 1 TAB PO (05:01)
[2021-08-22 07:20] VITALS: BP 139/85; PULSE 106; RESP 16; TEMP 36.8; O2SAT 96
[2021-08-22] MEDS: POLYSACCHARIDE IRON COMPLEX 150 MG CAPSULE PO (09:09)
[2021-08-22] MEDS: SERTRALINE HCL 50 MG TABLET 100 MG PO (09:09)
[2021-08-22] MEDS: DOCUSATE SODIUM 100 MG CAPSULE PO (09:09)
[2021-08-22] MEDS: HYDROcodone/acetaminophen (*CRX) 5-325 MG TABLET 1 TAB PO (09:10)
[2021-08-22] MEDS: MULTIVIT/MIN/PREN/FOL AC/IRON TABLET 1 TAB PO (09:10)
--- NOTE | 2021-08-22 09:21 | PM.OBPNVD ---
OB - PN: Subj Subjective Date/time seen: 08/22/21 09:21 Patient doing well. Pain well controlled with medication. Denies any headache, chest pain, SOB, N/V, visual disturbances, or RUQ tenderness. Minimal lochia. Ambulating well. Voiding without difficulty. +flatus. OB - PN: Obj Data Labs CBC & Chem 7: 08/21/21 04:26 08/19/21 00:48 OB - PN A/P Assessment and Plan (1) Delivery by section using transverse incision of lower segment of uterus: Code(s): O82 - Encounter for delivery without indication Status: Acute Assessment and Plan: POD#2 doing well continue routine postoperative care encourage ambulation and use of IS plan is to dc home in stable condition emergency precautions reviewed f/u in office in 1 week (2) Preeclampsia: Code(s): O14.90 - Unspecified pre-eclampsia, unspecified trimester Status: Acute Assessment and Plan: doing well asymptomatic emergency precautions, signs and symptoms reviewed with patient Time Spent With Patient Time: Total time spent is greater than 50% in coordination of care (as documented) at patient's floor/unit and/or counseling patient: Exam Const: General: cooperative, healthy appearing, comfortable and no acute distress GI: Inspection: non-distended GI Palp: Yes Soft to palpation and No Tenderness to palpation present (GI) Other: inc well healing, c/d/i Extrem: Right lower extremity: edema Details: 2+ Left lower extremity: edema Details: 2+ Other: no calf tenderness Psych: Appearance: grossly normal Mental Status: mental status grossly normal
--- NOTE | 2021-08-22 09:27 | P.DS_ITS ---
DS: Admitting Diagnosis Discharge Date 08/22/21 Admitting Diagnosis IUP at 37w Preeclampsia without severe features OB - DS: Summary OB Procedures : PIH Mgmt OB Procedures Intrapartum: OB Procedures: : None Peripartum Data Procedures: Procedures Operation Date: 08/20/21 13:00 Actual Procedure Side Surgeon p Section Helen Salguero MD Time Spent with Patient Time attestation: Total time spent providing and/or coordinating discharge services: DS: Data Data Completed and Pending Pending studies at discharge: Pending at discharge 08/20/21 14:56 Surgical [PTH] Routine Discharge Plan Discharge Attending physician on discharge: Helen Salguero Discharging Clinician: Helen Salguero Anticipated Discharge Date/Time: 08/22/21 09:28 Patient Disposition: Home, Self-Care Activity: as tolerated and pelvic rest Diet: regular Discharge Instructions: Call office ([phone]) to schedule the following appointments: 1. Postoperative/BP check in 1 week. 2. visits in 3 weeks and 6 weeks. You may take Ibuprofen 600mg every 6 hours as needed for pain. I have sent a prescription for a stronger pain medication, [place], to your pharmacy. You may take this as prescribed for breakthrough pain (pain that is not controlled with Ibuprofen). No driving for at least two weeks. You also may not drive while taking narcotics. Pain medication may make you constipated. It may be helpful to take an rggn-xjw-ewjmcxe stool softener, such as Colace and/or Senokot, along with the pain medication to help lessen constipation. Call office or go to ED for pain not controlled with medication, headache, chest pain, shortness of breath, fever, chills, persistent nausea or vomiting, severe abdominal pain, heavy vaginal bleeding >2 pads/hour, foul vaginal discharge or odor, any redness near incision, severe pain, pus or drainage from incision site , or problems with your breasts. Patient Instructions: Antibiotic Form Stand Alone Forms: General Discharge Information Follow-up/Referrals: Helen Salguero MD [Physician] - Discharge Medications: New hydrocodone-acetaminophen 5-325 mg Tablet 1 - 2 tablet PO Q4-6H PRN (Reason: Moderate Pain (4-6)) Qty: 30 0RF Continued prenat.vits,manfred,ofw-nadi-uiylr Tablet 1 tablet PO DAILY cetirizine [Zyrtec] 10 mg tablet 10 mg PO DAILY PRN (Reason: Allergy Symptoms) cholecalciferol (vitamin D3) [Vitamin D3] 50 mcg (2,000 unit) Tablet 50 mcg PO DAILY ferrous sulfate 325 mg (65 mg iron) tablet 325 mg PO DAILY Qty: 90 0RF sertraline 100 mg tablet 100 mg PO DAILY Qty: 30 3RF Date of admission: 08/18/21 00:01 Primary Care Provider: Alison Pineda Admitting Provider: Helen Salguero Attending physician on admission: Helen Salguero Condition: Stable
[2021-08-23 09:49] VITALS: BP 124/69; PULSE 103; RESP 20; TEMP 37.4; O2SAT 98
== END 2021-08-22 10:58 | disposition home or self-care (01) | DRG 788 ==
LOC: ANHOB2 08-22 09:42 → ANHLDR 08-25 10:52 → ANHOB2 08-25 10:52
PROVIDERS: Admitting Provider Student in an Organized Health Care Education/Training Program; PCP Family Medicine; Visit Provider Student in an Organized Health Care Education/Training Program
PROC: 10D00Z1 Extraction of Products of Conception, Low, Open Approach (ICD-10-PCS; CPT 59514; principal; 2021-08-20 13:00)
DX: O14.04 Mild to moderate pre-eclampsia, complicating childbirth (principal); O99.214 Obesity complicating childbirth; O42.92 Full-term premature rupture of membranes, unspecified as to length of time between rupture and onset of labor; O62.0 Primary inadequate contractions; E66.01 Morbid (severe) obesity due to excess calories; O76 Abnormality in fetal heart rate and rhythm complicating labor and delivery; Z3A.37 37 weeks gestation of pregnancy; Z37.0 Single live birth
CPT/HCPCS: 36415; 80053; 84550; 85025; 86592; 86850; 86900; 86901; A9270; J0290; J0690; J1100; J1885; J2001; J2274; J2370; J2405; J2590; J2795; J3480; J7120

== ENCOUNTER 2021-09-17 04:55 | Emergency (ER) | payer OTHER, SELFPAY ==
[2021-09-17] VITALS (7 sets, daily range): BP systolic 120–164; BP diastolic 67–99; PULSE 68–101; RESP 14–20; TEMP 36.4; O2SAT 97–100
--- NOTE | ~2021-09-17 | XR_ITS ---
XR chest 1V portable DATE: 09/17/2021 06:08 INDICATION: Chest pain, elevated d-dimer. TECHNIQUE: Portable upright AP chest on 09/17/2021 at 0602 hours COMPARISON: None FINDINGS: Normal heart size. No hilar or mediastinal enlargement. No pulmonary infiltrate or consolid ation, pleural effusion or pulmonary vascular congestion or pneumothorax. Included skeletal structure s are unremarkable. IMPRESSION: Negative Reviewed, dictated and finalized at location A. IMPRESSION: Negative
--- NOTE | ~2021-09-17 | CT_ITS ---
EXAMINATION: CTA chest PE protocol DATE: 09/17/2021 07:11 INDICATION: Chest pain. Elevated d-dimer. TECHNIQUE: Computed tomography angiography (CTA) of the chest was performed with 100 mL Omnipaque-350 intravenous contrast timed to evaluate the pulmonary arteries. Coronal maximum intensity projection 3D-reconstructions were created by the technologist. Automated exposure control and iterative reconst ruction technique were employed. Exam dose: 953.39 mGy-cm total exam DLP. COMPARISON: 09/17/2021 portable AP chest on 0602 hours FINDINGS: There is moderate contrast enhancement of the pulmonary arteries and no apparent pulmonary embolism. No thoracic aortic aneurysm or dissection. Normal heart size. No pericardial or pleural effusion. Mild focal discoid atelectasis or scarring at the lateral base of the middle lobe. No pulmonary infil trate or consolidation or pulmonary mass lesion. Included skeletal structures are unremarkable. IMPRESSION: No evidence of pulmonary embolism Reviewed, dictated and finalized at Location A. Reviewed, dictated and finalized at location A.
--- NOTE | 2021-09-17 05:28 | ECG_ITS ---
Measurements Intervals [place] Rate: 76 P: 49 [place]: 132 QRS: 20 QRSD: 89 T: 35 QT: 386 QTc: 436 Interpretive Statements SINUS RHYTHM DELAYED PRECORDIAL R/S TRANSITION BORDERLINE ST-T WAVE ABNORMALITY- INFERIOR LEADS BASELINE WANDER- II, III, AVL, AVF BORDERLINE ECG Electronically Signed On 09-17-2021 7:16:45 CDT by Nikolay Arroyo D.O.
--- NOTE | 2021-09-17 05:29 | ED.CHESTPAIN ---
HPI - Chest Pain General Chief Complaint: Back Pain/Injury <Misbah Gamble MD - Last Filed: 09/17/21 06:48> Stated Complaint: c section 4 weeks ago now chest and back pain <Misbah Gamble MD - Last Filed: 09/17/21 06:48> Time Seen by Provider: 09/17/21 05:04 <Misbah Gamble MD - Last Filed: 09/17/21 06:48> History of Present Illness HPI narrative: Patient is a 26-year-old female complaining of chest pain, substernal, 7 out of 10, sharp, radiating to back, worse when deep breaths started early this morning. Patient states that she recently had done a few weeks ago. Patient denies any shortness of breath, abdominal pain, nausea, vomiting, diaphoresis, fever or chills. <Misbah Gamble MD - Last Filed: 09/17/21 06:48> Related Data Home Medications: Home Medications Medication Instructions Recorded Confirmed michael.vitsharmila,manfred,dqt-oyln-wpnzc 1 tablet PO DAILY 11/04/20 09/16/21 cetirizine 10 mg tablet (Zyrtec) 10 mg PO DAILY PRN Allergy Symptoms 11/29/20 09/16/21 cholecalciferol (vitamin D3) 50 50 mcg PO DAILY 08/11/21 09/16/21 mcg (2,000 unit) tablet (Vitamin D3) <Misbah Gamble MD - Last Filed: 09/17/21 06:48> Allergies/Adverse Reactions: Allergies Allergy/AdvReac Type Severity Reaction Status Date / Time No Known Allergies Allergy Verified 09/17/21 05:00 <Misbah Gamble MD - Last Filed: 09/17/21 06:48> Review of Systems Review of Systems: All systems reviewed & are unremarkable except as noted in HPI and below <Misbah Gamble MD - Last Filed: 09/17/21 06:48> Constitutional: Constitutional: Denies body ache(s), Denies chills, Denies excessive sweating, Denies fatigue, Denies fever(s), Denies headache(s), Denies lethargy, Denies malaise, Denies weakness and Denies weight loss <Misbah Gamble MD - Last Filed: 09/17/21 06:48> Eyes: Eyes: Denies blurry vision, Denies change in vision and Denies loss of vision <Misbah Gamble MD - Last Filed: 09/17/21 06:48> ENT: Denies dizziness, Denies ear discharge, Denies headache(s), Denies lip swelling, Denies epistaxis, Denies nasal congestion, Denies neck pain, Denies throat swelling and Denies tongue swelling <Misbah Gamble MD - Last Filed: 09/17/21 06:48> Cardiovascular: Cardiovascular: Denies diaphoresis, Denies rapid heart rate, Denies edema, Denies irregular heart rhythm, Denies lightheadedness, Denies palpitations, Denies dyspnea and Denies dyspnea on exertion <Misbah Gamble MD - Last Filed: 09/17/21 06:48> Respiratory: Respiratory: Denies chest congestion, Denies cough, Denies hemoptysis, Denies dyspnea and Denies dyspnea on exertion <Misbah Gamble MD - Last Filed: 09/17/21 06:48> Gastrointestinal: Gastrointestinal: Denies abdominal pain, Denies melena, Denies hematochezia, Denies diarrhea, Denies nausea, Denies vomiting and Denies hematemesis <Misbah Gamble MD - Last Filed: 09/17/21 06:48> Musculoskeletal: Musculoskeletal: Denies abnormal gait, Denies deformity, Denies joint swelling, Denies limited range of motion, Denies neck pain and Denies numbness <Misbah Gamble MD - Last Filed: 09/17/21 06:48> Neurologic: Denies Abnormal speech present, Denies abnormal gait, Denies confusion, Denies dizziness, Denies headache(s), Denies focal weakness, Denies loss of vision, Denies numbness, Denies Other visual disturbances, Denies Sensory deficit (Neuro) and Denies weakness <Msibah Gamble MD - Last Filed: 09/17/21 06:48> Psychiatric: Psychiatric: Denies confusion, Denies depression, Denies auditory hallucinations, Denies homicidal ideation and Denies suicidal ideation <Misbah Gamble MD - Last Filed: 09/17/21 06:48> Endocrine: Endocrine: Denies cold intolerance, Denies excessive sweating, Denies fatigue, Denies heat intolerance and Denies palpitations <Misbah Gamble MD - Last Filed: 09/17/21 06:48> Hematologic/Lymphatic: Hematologic/Lymphatic: Denies eas
[2021-09-17 06:23] LABS: Basophils Percent Auto 0.5 % (0.2-1.2); Eosinophils Absolute Auto 0.3 K/mm3 (0-0.3); Eosinophils Percent Auto 3.7 % (0-4.4); Hematocrit 34.7 % (37.0-47.0); Hemoglobin 10.4 g/dL (12.0-15.0); Immature Granulocyte Absolute 0.04 K/mm3 (0.00-0.031); Immature Granulocyte Percent A 0.5 % (0-0.5); Lymphocytes Absolute Auto 1.77 K/mm3 (0.9-3.2); Lymphocytes Percent Auto 20.3 % (18.3-44.2); Mean Corpuscular Hemoglobin 26.7 pg (26-34); Mean Corpuscular Volume 89.2 fl (80-100); Mean Platelet Volume 10.4 fl (7.4-10.4); Monocytes Absolute Auto 0.5 K/mm3 (0.1-0.6); Monocytes Percent Auto 5.6 % (2.6-8.5); Neutrophils Absolute Auto 6.1 K/mm3 (1.3-6.7); Neutrophils Percent Auto 69.4 % (45.5-73.1); Platelet Count Result 351 k/mm3 (150-375); Red Blood Count 3.89 M/mm3 (4.2-5.4); Red Cell Distribution Width 13.9 % (11.5-14.5); White Blood Count 8.7 K/mm3 (4.5-10.0)
[2021-09-17 06:33] LABS: Alanine Aminotransferase 19 U/L (6-35); Alkaline Phosphatase 118 U/L (38-126); Anion Gap 13 mmol/L (8-16); Aspartate Amino Transferase 22 U/L (14-36); Bilirubin,Total 0.3 mg/dL (0.2-1.3); Blood Urea Nitrogen 15 mg/dL (7-17); Calcium 9.2 mg/dL (8.4-10.2); Carbon Dioxide 25 mmol/L (22-30); Chloride 102 mmol/L (98-107); Estimated CRCL calculation 85 ml/min; Estimated Glomerular Filt Rate > 60; Glucose 106 mg/dL (65-110); Lipase 90 U/L (23-300); Potassium 3.5 mmol/L (3.4-5.0); Sodium 140 mmol/L (137-145)
[2021-09-17 06:40] LABS: Partial Thromboplastin Time 30.7 SECONDS (22.3-36.8); Prothrombin Time 13.2 Seconds (11.1-14.7)
[2021-09-17 06:44] LABS: D Dimer 1.28 ug/mL (<0.48); Troponin I < 0.012 ng/mL (0.000-0.034)
--- NOTE | 2021-09-17 07:24 | PC.NURSE ---
Patient report received from ED Hu. All questions answered and care of patient assumed. Patient in CT for PE Protocol.
--- NOTE | 2021-09-17 08:17 | PC.NURSE ---
Patient returned to room from CT. Mother at bedside and call-light within reach. Patient resting comfortably in NAD. VSS. Patient continues to c/o CP with deep inspiration. Rating the pain at 2/10. States I'm feeling much better . Awaiting CT results and further orders and disposition.
[2021-09-17 09:28] LABS: Troponin I < 0.012 ng/mL (0.000-0.034)
== END 2021-09-17 09:54 | disposition home or self-care (01) ==
PROVIDERS: Emergency Medicine; Emergency Provider Emergency Medicine; PCP Family Medicine
DX: O90.89 Other complications of the puerperium, not elsewhere classified (principal); R07.2 Precordial pain; M54.6 Pain in thoracic spine; R94.31 Abnormal electrocardiogram [ECG] [EKG]
CPT/HCPCS: 36415; 71045; 71275; 80053; 83690; 84484; 85025; 85380; 85610; 85730; 93005; 99284; Q9967

== ENCOUNTER → 2021-10-20 11:17 | Outpatient (CLI) | payer OTHER, SELFPAY ==
--- NOTE | ~2021-10-20 | US_ITS ---
EXAMINATION: US abdomen complete DATE: 10/20/2021 11:40 INDICATION: Unspecified abdominal pain TECHNIQUE: Multiple grayscale and Doppler ultrasound images of the abdomen were obtained. COMPARISON: None available FINDINGS: The head, body, and tail of the pancreas are normal. The liver is normal with normal echoge nicity and echotexture. No surface nodularity. Normal hepatopetal flow in the main portal vein. There are multiple stones in the nondistended gallbladder. The normal common bile duct measures 4 mm. Ther e was no sonographic Elias sign. The visualized portions of the aorta and inferior vena cava are nor mal. The right kidney measures 9.9 x 4.2 x 4 cm. The left kidney measures 10.2 x 5.7 x 4.4 cm. The kidneys demonstrate normal parenchymal echogenicity. There is no hydronephrosis. The spleen is normal in sri earance and measures 11.3 cm. IMPRESSION: 1. Cholelithiasis without evidence of cholecystitis. Reviewed, dictated and finalized at location A.
== END ==
PROVIDERS: PCP Physician Assistant Medical; Visit Provider Physician Assistant Medical
DX: R10.9 Unspecified abdominal pain (principal); K80.20 Calculus of gallbladder without cholecystitis without obstruction
CPT/HCPCS: 76700

== ENCOUNTER 2021-10-21 19:02 | Inpatient (IN) | payer OTHER, SELFPAY ==
--- NOTE | ~2021-10-21 | XR_ITS ---
EXAMINATION: XR ERCP DATE: 10/23/2021 09:00 INDICATION: Choledocholithiasis. TECHNIQUE: 3 spot fluoroscopic images of the right upper quadrant were obtained during endoscopic ret rograde cholangiopancreatography (ERCP). Fluoroscopy exposure time was 222 seconds. COMPARISON: MRCP 10/22/2021 FINDINGS: The endoscope is in the second portion of the duodenum. There is contrast opacification of the common duct. The common duct is mildly dilated. There is contrast opacification of the gallbladde r neck. IMPRESSION: 1. Mildly dilated common duct. Please refer to the ERCP procedure note for additional details. Reviewed, dictated and finalized at location A. IMPRESSION: 1. Mildly dilated common duct. Please refer to the ERCP procedure note for veronica tional details.
--- NOTE | ~2021-10-21 | CT_ITS ---
EXAMINATION: CT abdomen pelvis w con DATE: 10/21/2021 21:12 INDICATION: Right upper quadrant abdominal pain. TECHNIQUE: Computed tomography (CT) of the abdomen and pelvis was performed with 100 mL Omnipaque-350 intravenous contrast. Automated exposure control and iterative reconstruction technique were employe d. The dose-length product was 1487.67 mGy-cm. COMPARISON: None FINDINGS: Lung bases are clear. Heart size is normal. No pericardial or pleural effusion. Dependently layering density in the gallbladder corresponding to shadowing gallstones on recent ultrasound. No gallbladder dilation, wall thickening or pericholecystic infiltrate stranding to suggest acute cholecystitis. Mi ld central intrahepatic biliary ductal dilation without evident dilation of the common bile duct. Spl een, pancreas, bilateral adrenal glands and kidneys are normal. Bowels including the appendix are nor mal. Bladder, anteverted uterus and bilateral adnexa are normal. No free intraperitoneal gas or fluid . No pathologically enlarged abdominal or pelvic lymphadenopathy. Tiny fat-containing umbilical herni a. Bones are unremarkable. IMPRESSION: 1. Cholelithiasis with mild intrahepatic biliary ductal dilation. Correlate with liver function tests and if clinically indicated could consider MRCP for further evaluation. Reviewed, dictated and finalized at location A. IMPRESSION: 1. Cholelithiasis with mild intrahepatic biliary ductal dilation. Correlate wit h liver function tests and if clinically indicated could consider MRCP for furt her evaluation.
--- NOTE | ~2021-10-21 | MR_ITS ---
EXAMINATION: MR MRCP wo/w con/w 3D wo ind DATE: 10/22/2021 11:20 INDICATION: Choledocholithiasis. Jaundice. TECHNIQUE: Magnetic resonance imaging (MRI) of the abdomen was performed without and with 20 mL Multi Teagan intravenous contrast. Sequences included coronal T2-weighted FS FSE, coronal T2-weighted FSE, a xial T1-weighted LAVA, coronal FS FIESTA, axial dual-echo T1-weighted SPGR, coronal lava-FLEX, sagitt al T2-weighted FSE, axial T2-weighted FSE, and axial DWI. Thick-slab T2-weighted FSE images were obta ined for magnetic resonance cholangiopancreatography (MRCP). Maximum intensity projection 3-D reconst ructions of the volumetric data were created by the technologist. Postcontrast sequences included cor onal LAVA-flex and time course of axial T1-weighted LAVA. COMPARISON: CT abdomen and pelvis 10/21/2021 FINDINGS: ABDOMEN MRI: There is diffuse hepatic steatosis. There are gallstones in the gallbladder, which is di stended. Gallbladder wall thickening is noted. The spleen, pancreas, adrenal glands, and kidneys are normal. There are no dilated loops of bowel. ABDOMEN MRCP: The common duct is mildly dilated and measures 7 mm. No choledocholithiasis. IMPRESSION: 1. Mildly dilated common duct. No choledocholithiasis. 2. Acute cholecystitis. 3. Diffuse hepatic steatosis. Reviewed, dictated and finalized at location A.
[2021-10-21 19:08] VITALS: BP 133/75; PULSE 85; RESP 18; TEMP 36.8; O2SAT 99
[2021-10-21 20:26] LABS: Basophils Absolute Auto 0.1 K/mm3 (0.0-0.1); Basophils Percent Auto 0.5 % (0.2-1.2); Eosinophils Absolute Auto 0.3 K/mm3 (0-0.3); Eosinophils Percent Auto 2.6 % (0-4.4); Hematocrit 37.8 % (37.0-47.0); Hemoglobin 11.8 g/dL (12.0-15.0); Immature Granulocyte Absolute 0.02 K/mm3 (0.00-0.031); Immature Granulocyte Percent A 0.2 % (0-0.5); Lymphocytes Absolute Auto 1.93 K/mm3 (0.9-3.2); Lymphocytes Percent Auto 20.1 % (18.3-44.2); Mean Corpuscular HGB Conc 31.2 g/dl (32-36); Mean Corpuscular Hemoglobin 26.3 pg (26-34); Mean Corpuscular Volume 84.4 fl (80-100); Monocytes Absolute Auto 0.6 K/mm3 (0.1-0.6); Monocytes Percent Auto 6.6 % (2.6-8.5); Neutrophils Absolute Auto 6.7 K/mm3 (1.3-6.7); Platelet Count Result 367 k/mm3 (150-375); Red Blood Count 4.48 M/mm3 (4.2-5.4); Red Cell Distribution Width 14.6 % (11.5-14.5); White Blood Count 9.6 K/mm3 (4.5-10.0)
--- NOTE | 2021-10-21 20:34 | ED.GENADULT ---
HPI - General Adult General Chief complaint: Recheck/Abnormal Lab/Rx Stated complaint: abnormal labs, jaundice Time Seen by Provider: 10/21/21 19:54 History of Present Illness HPI narrative: Patient is a 26-year-old female who presents to the emergency department with chief complaint of jaundice and itchiness. Patient reports that she has been having some discomfort in her abdomen and reports that she had an ultrasound that showed that she had cholelithiasis without evidence of cholecystitis. The patient at that time had a normal common bile duct and had laboratory studies done by her primary doctor that showed that she had mild elevation in her liver transaminases including a bilirubin of 3.0. Patient reports has become progressively more jaundiced reports she is itching all over and reports that she is having pain in the right upper quadrant. Patient reports symptoms or not improved by anything reports she is not having any fevers with this. Patient reports that she has an outpatient appointment with general surgery scheduled for approximately 1 week from now. Related Data Home Medications Medication Instructions Recorded Confirmed prenat.vits,manfred,ieu-snwh-wugyq 1 tablet PO DAILY 11/04/20 09/16/21 cetirizine 10 mg tablet (Zyrtec) 10 mg PO DAILY PRN Allergy Symptoms 11/29/20 09/16/21 cholecalciferol (vitamin D3) 50 50 mcg PO DAILY 08/11/21 09/16/21 mcg (2,000 unit) tablet (Vitamin D3) Allergies Allergy/AdvReac Type Severity Reaction Status Date / Time No Known Allergies Allergy Verified 10/21/21 19:12 Review of Systems Review of Systems: A 10 system review of systems was completed on the patient and is negative except for what is stated in the HPI. Nursing and ancillary documentation was reviewed. [facility] Past Medical History Medical History Depression Pre-eclampsia Seasonal allergies Super-super obese Surgical History Surgical History History of section 08/20/21 [place] teeth removed 2014 Family History Family History Grandparent Diabetes mellitus Family history of lung cancer Mother Diabetes mellitus Melanoma Social History Social History Smoking status: Never smoker Second hand tobacco smoke exposure: No Alcohol intake: current Substance use: never Substance use type: does not use Gender identity (if verbalized by the patient): Female Spiritual care concerns: No Exam Narrative: GENERAL: Well-appearing, well-nourished, and in no acute distress. HEAD: Normocephalic, atraumatic. EYES: PERRLA and EOMI. mildly icteric ENT: Nares clear, no rhinorrhea or epistaxis. Mucous membranes moist. NECK: Supple. CHEST: Clear to auscultation. No respiratory distress. HEART: Regular rate and rhythm. No murmur heard. Normal peripheral pulses. ABDOMEN: Soft, moderate tenderness in the right upper quadrant, nondistended, normal active bowel sounds. EXTREMITIES: Normal range of motion. No edema. SKIN: Warm, dry, pruritic rash. Jaundice NEURO: No focal deficits. Alert and oriented x3. PSYCH: Normal mood and affect. Course Vital Signs Vital signs: Vital Signs Temperature 36.8 C 10/21/21 19:08 Pulse Rate 85 10/21/21 19:08 Respiratory Rate 18 10/21/21 19:08 Blood Pressure 133/75 10/21/21 19:08 Pulse Oximetry 99 10/21/21 19:08 Oxygen Delivery Room Air 10/21/21 19:08 Temperature 36.8 C 10/21/21 19:08 Pulse Rate 85 10/21/21 19:08 Respiratory Rate 18 10/21/21 19:08 Blood Pressure 133/75 10/21/21 19:08 Pulse Oximetry 99 10/21/21 19:08 Oxygen Delivery Room Air 10/21/21 19:08 Medical Decision Making Vital Signs Vital Signs: Vital Signs Temperature 36.8 C 10/21/21 19:08 Pulse Rat
[2021-10-21 20:35] LABS: Alanine Aminotransferase 274 U/L (6-35); Albumin Level 4.5 g/dL (3.5-5.1); Alkaline Phosphatase 403 U/L (38-126); Anion Gap 12 mmol/L (8-16); Aspartate Amino Transferase 199 U/L (14-36); Bilirubin,Total 4.3 mg/dL (0.2-1.3); Blood Urea Nitrogen 13 mg/dL (7-17); Calcium 9.7 mg/dL (8.4-10.2); Carbon Dioxide 19 mmol/L (22-30); Chloride 108 mmol/L (98-107); Estimated CRCL calculation 105 ml/min; Estimated Glomerular Filt Rate > 60; Glucose 100 mg/dL (65-110); Lipase 65 U/L (23-300); Potassium 3.9 mmol/L (3.4-5.0); Sodium 139 mmol/L (137-145)
[2021-10-21 20:36] LABS: Lactic Acid Reflex 0.7 mmol/L (0.7-2.0)
[2021-10-21] MEDS: SODIUM CHLORIDE 0.9% IV 1,000 ML 999 ML IV CONT (20:49)
[2021-10-21 20:51] VITALS: BP 129/77; PULSE 76; O2SAT 99
[2021-10-21] MEDS: ONDANSETRON INJ 4 MG/2 ML VIAL IV PUSH (20:54)
[2021-10-21 20:55] LABS: Appearance Urine Clear (Clear); Bilirubin Urine 3+ (Negative); Blood Urine 3+ (Negative); Color Urine Yellow (Yellow); Glucose Urine UA Trace mg/dL (Negative); Ketones Urine Trace mg/dL (Negative); Leukocyte Esterase Ur Trace LEU/UL (Negative); Nitrate Urine Negative (Negative); Protein Urine 2+ mg/dL (Negative); Specific Grav Ur >= 1.030 (1.001-1.035); Urobilinogen Urine 0.2 mg/dL (<2.0)
[2021-10-21] MEDS: MORPHINE SULFATE (*CRX) 4 MG/ML INJ IV PUSH (20:55)
[2021-10-21 21:01] VITALS: BP 130/65; O2SAT 98
[2021-10-21 21:09] LABS: Add Urine Microscopic? YES
[2021-10-21 21:10] LABS: RBC Urine >75 /hpf (0-2)
[2021-10-21 21:11] LABS: WBC Urine 16-20 /hpf (0-3)
[2021-10-21 21:12] LABS: Bacteria Urine Trace /hpf; Mucus Urine Few /lpf; Squamous Epithelial Cell Urine Few /hpf (Few)
--- NOTE | 2021-10-21 21:46 | PC.NURSE ---
Pt states is feeling much better at present.
[2021-10-21 22:01] VITALS: BP 132/71; O2SAT 97
[2021-10-21 22:31] VITALS: BP 117/60
--- NOTE | 2021-10-21 23:31 | PM.IMHP ---
H&P: HPI History of Present Illness Date/Time: 10/21/21 23:31 Chief Complaint: Abdominal pain, yellow skin and eyes Narrative: 26-year-old female with a past medical history of obesity and recent delivery of 37 week gestation due to preeclampsia who presented to the ER with abdominal pain and jaundice. The patient reports as she the liver son on 08/20/2021. She was discharged home but was having intermittent lower chest pain that radiated through to her back it was in the right upper quadrant region. Pain was worse with deep breathing. She went to the ER on the 17 of September and had a CTA of the chest that was negative for pulmonary embolism. She continued to have intermittent episodes and initially did not notice a pattern associated with eating or drinking. Initially the symptoms were occurring once a week but increased in frequency to where there sometimes happening every day or every other day and episode of the symptoms were increasing in duration of time. She had tried stretching, Tylenol and chiropractor treatments without improvement in her symptoms. She had tried some ibuprofen without relief in symptoms. She did have some [place] left over from when she had her which did seem to relieve her pain for the short-term. Pain would sometimes last 20 minutes or up to a couple of hours. the pain was an 8/10 in intensity at times. She denied any associated fevers or chills. Then on the 18 of October the patient had developed new onset of tea-colored urine and chalky colored stool. She begin doing some research on the Internet and start to suspect that she was having some problems with her gallbladder. She contacted Dr. Holland office and they were able to move her appointment up. The patient had outpatient labs done the next day which demonstrated hyperbilirubinemia with a bilirubin of 3 AST 158 ALT of 239 and alk-phos of 409. She had an outpatient right upper quadrant ultrasound yesterday which demonstrated cholelithiasis without evidence of cholecystitis. She was referred to General surgery as outpatient but it did not have an appointment until next week. She began having increasing abdominal pain in frequency and duration. It was accompanied by worsening jaundice and pruritus. reported that the pain was becoming unbearable even when she was not eating. She has some associated nausea but no significant vomiting. She decided come to the ER for evaluation. Review of Systems Review of Systems: 12 systems were reviewed with pertinent positives and negatives per HPI. Except as documented in the HPI, all other systems were reviewed and are negative. [facility] Past Medical History Medical History (Updated 10/22/21 @ 06:56 by Janie Ruiz DO) Depression Obesity, Class III, BMI 40-49.9 (morbid obesity) Pre-eclampsia Seasonal allergies Vitamin D deficiency Surgical History Surgical History History of section 08/20/21 [place] teeth removed 2014 Family History Family History Grandparent Diabetes mellitus Family history of lung cancer Mother Diabetes mellitus Melanoma Social History Social History (Updated 10/22/21 @ 06:44 by Janie Ruiz DO) Social History: Code status: Full code Surrogate decision maker: Smoking status: Never smoker Second hand tobacco smoke exposure: No Alcohol intake: current Drinks per week: 1 Alcohol use details: She drinks 1 alcoholic beverage a month. Substance use: never Substance use type: does not use Additional living arrangements comments: She lives at home with her and her 2-month-old son. Additional occupation/education comments: She works for the [employer]. She is currently on maternity leave. Gender identity (if verbalized by the patient): Female Spiritual care concerns: No
--- NOTE | 2021-10-22 00:02 | ADMGEN ---
This patient, Candace Green, was admitted to 2 Medical Room 240-01 @0000. Patient/family oriented to hospital policies and general routines including ID bracelet, bed and alarms, visiting hours, pain management, procedures, bathroom and other care routines, personal items, smoking policy, room service/diet, and visiting hours. Information on how to activate the Rapid Response Team has been discussed. Patient/Family are encouraged to report perceived risks to care and to ask questions if they do not understand what they are told or what they should do.
[2021-10-22 00:09] VITALS: BP 113/60; PULSE 70; RESP 16; TEMP 37.1; O2SAT 97; BMI 47.3
[2021-10-22] MEDS: SODIUM CHLORIDE 0.9% IV 1,000 ML 125 ML IV CONT ×2 (00:17→10:05)
[2021-10-22] MEDS: MORPHINE SULFATE (*CRX) 4 MG/ML INJ IV PUSH (01:00)
[2021-10-22 03:43] VITALS: BP 113/52; PULSE 74; RESP 12; TEMP 36.8; O2SAT 96
[2021-10-22 04:55] LABS: Basophils Percent Auto 0.5 % (0.2-1.2); Eosinophils Absolute Auto 0.2 K/mm3 (0-0.3); Eosinophils Percent Auto 3.1 % (0-4.4); Hematocrit 34.1 % (37.0-47.0); Hemoglobin 10.6 g/dL (12.0-15.0); Immature Granulocyte Absolute 0.03 K/mm3 (0.00-0.031); Immature Granulocyte Percent A 0.4 % (0-0.5); Lymphocytes Percent Auto 24.5 % (18.3-44.2); Mean Corpuscular HGB Conc 31.1 g/dl (32-36); Mean Corpuscular Hemoglobin 26.4 pg (26-34); Mean Corpuscular Volume 84.8 fl (80-100); Mean Platelet Volume 11.1 fl (7.4-10.4); Monocytes Absolute Auto 0.7 K/mm3 (0.1-0.6); Monocytes Percent Auto 8.9 % (2.6-8.5); Neutrophils Absolute Auto 4.9 K/mm3 (1.3-6.7); Neutrophils Percent Auto 62.6 % (45.5-73.1); Platelet Count Result 305 k/mm3 (150-375); Red Blood Count 4.02 M/mm3 (4.2-5.4); Red Cell Distribution Width 14.4 % (11.5-14.5); White Blood Count 7.8 K/mm3 (4.5-10.0)
[2021-10-22 05:31] LABS: Alanine Aminotransferase 238 U/L (6-35); Albumin Level 3.8 g/dL (3.5-5.1); Alkaline Phosphatase 347 U/L (38-126); Anion Gap 8 mmol/L (8-16); Aspartate Amino Transferase 159 U/L (14-36); Bilirubin,Total 3.6 mg/dL (0.2-1.3); Blood Urea Nitrogen 11 mg/dL (7-17); Calcium 9.1 mg/dL (8.4-10.2); Carbon Dioxide 22 mmol/L (22-30); Chloride 110 mmol/L (98-107); Estimated CRCL calculation 96 ml/min; Estimated Glomerular Filt Rate > 60; Glucose 94 mg/dL (65-110); Lipase 40 U/L (23-300); Potassium 3.8 mmol/L (3.4-5.0); Sodium 140 mmol/L (137-145)
[2021-10-22 09:41] VITALS: O2SAT 95
--- NOTE | 2021-10-22 10:35 | PM.CNGS ---
Assessment and Plan Assessment and plan (1) Choledocholithiasis with obstruction: Qualifiers: Cholecystitis presence: without cholecystitis Qualified Code(s): K80.51 - Calculus of bile duct without cholangitis or cholecystitis with obstruction Code(s): K80.51 - Calculus of bile duct without cholangitis or cholecystitis with obstruction Status: Acute Assessment and Plan: exam benign, labs minimally improved, will get MRCP for further evaluation, GI consult obtained as well, will need interval cholecystectomy History of Present Illness Consult details Consult date: 10/22/21 Reason for consult: abdominal pain Requesting physician: Denita Smiley PA-C Narrative: The patient is a 26-year-old female presenting to the emergency department complaining of a severe upper abdominal pain, jaundice. The patient reports that she delivered via in early August. Soon afterward, the patient began experiencing intermittent upper abdominal pain associated with bloating, nausea, anorexia. The patient reports the symptoms have become more frequent and severe. Over the last week, patient reports jaundice and pruritus. The patient was seen by her primary care and laboratories revealed elevated transaminases and bilirubin. Review of Systems Constitutional: Constitutional: Reports as per HPI, Reports anorexia, Reports fatigue, Reports lethargy, Reports poor appetite, Reports weakness, Denies weight gain and Denies weight loss Eyes: Eyes: Reports no additional eye complaints ENT: Reports system reviewed and no additional complaints, except as documented Cardiovascular: Cardiovascular: Reports no additional cardiovascular complaints Respiratory: Respiratory: Reports no additional respiratory complaints Gastrointestinal: Gastrointestinal: Reports as per HPI, Reports abdominal pain, Reports bloating, Reports GI cramping, Reports heartburn, Reports loose stools, Reports nausea and Denies vomiting Genitourinary: Genitourinary: Reports no additional female genitourinary complaints Musculoskeletal: Musculoskeletal: Reports no additional musculoskeletal complaints Integumentary/Breasts: Skin/Breast: Reports as per HPI and Reports jaundice Neurologic: Reports system reviewed and no additional complaints, except as documented Psychiatric: Psychiatric: Reports no additional psychiatric complaints Endocrine: Endocrine: Reports no additional endocrine complaints Hematologic/Lymphatic: Hematologic/Lymphatic: Reports no additional hematologic/lymphatic complaints Allergic/Immunologic: Allergic/Immunologic: Reports no additional allergic/immunologic complaints PMFSH Past Medical History Medical History Depression Obesity, Class III, BMI 40-49.9 (morbid obesity) Pre-eclampsia Seasonal allergies Vitamin D deficiency Surgical History Surgical History History of section 08/20/21 [place] teeth removed 2014 Family History Family History Grandparent Diabetes mellitus Family history of lung cancer Mother Diabetes mellitus Melanoma Social History Social History Social History: Code status: Full code Surrogate decision maker: Smoking status: Never smoker Second hand tobacco smoke exposure: No Alcohol intake: current Drinks per week: 1 Alcohol use details: She drinks 1 alcoholic beverage a month. Substance use: never Substance use type: does not use Additional living arrangements comments: She lives at home with her and her 2-month-old son. Additional occupation/education comments: She works for the [employer]. She is currently on maternity leave. Gender identity (if verbalized by the patient): Female Spiritual care concerns: No
--- NOTE | 2021-10-22 10:49 | WPDGICN ---
Assessment and Plan Assessment and plan (1) Obstructive jaundice: Code(s): K83.1 - Obstruction of bile duct Status: Acute Assessment and Plan: elevated bilirubin and elevated AST suggestive of obstruction this appears to be substantiated by her history of dark urine and light stools. Await MRCP to further evaluate common bile duct. Patient likely will require ERCP prior to anticipated surgery. Hopefully this can be accomplished over the next several days (2) Cholelithiasis: Code(s): K80.20 - Calculus of gallbladder without cholecystitis without obstruction Status: Acute Assessment and Plan: Patient with symptomatic gallstones. Found to have jaundice most suspicious for obstructive jaundice. Patient is recovering from recent at which time she was Preeclamptic.. Plan is for MRCP to evaluate the common bile duct she may require subsequent ERCP prior to anticipated cholecystectomy. Will fractionate bilirubin review MRCP when available and determine whether ERCP is necessary subsequently (3) Delivery by section using transverse incision of lower segment of uterus: Code(s): O82 - Encounter for delivery without indication Status: Acute Assessment and Plan: patient is status post recent she was delivered by 1 month ago during she had preeclampsia. (4) anemia: Code(s): O90.81 - Anemia of the puerperium Status: Acute GI Consult Note Consult date/time: 10/22/21 10:49 Reason for consult: Gallstones and jaundice HPI: Candace Green is a 26 year old female I am asked to see because of gallstones and jaundice. Patient delivered a baby in August by at our hospital. Subsequent to this patient developed rather diffuse abdominal pain but most noticed in the right upper quadrant of the abdomen. Outpatient workup confirmed gallstones. Over the last week patient has developed yellow jaundice, some pruritus, and abdominal pain prompting her to present to the emergency room. In the ER she was noted to have elevated bilirubin elevated transaminases. Ultrasound and CT and scanned confirmed cholelithiasis. Patient denies any fever. Abdominal pain currently is in control with pain injections. Review of Systems Review of Systems: Review of systems noncontributory. [facility] Past Medical History Medical History Depression Obesity, Class III, BMI 40-49.9 (morbid obesity) Pre-eclampsia Seasonal allergies Vitamin D deficiency Surgical History Surgical History History of section 08/20/21 [place] teeth removed 2014 Family History Family History Grandparent Diabetes mellitus Family history of lung cancer Mother Diabetes mellitus Melanoma Social History Social History Social History: Code status: Full code Surrogate decision maker: Smoking status: Never smoker Second hand tobacco smoke exposure: No Alcohol intake: current Drinks per week: 1 Alcohol use details: She drinks 1 alcoholic beverage a month. Substance use: never Substance use type: does not use Additional living arrangements comments: She lives at home with her and her 2-month-old son. Additional occupation/education comments: She works for the [employer]. She is currently on maternity leave. Gender identity (if verbalized by the patient): Female Spiritual care concerns: No Meds Home Medications and Allergies Home Medications Medication Instructions Recorded Confirmed Type cetirizine 10 mg tablet (Zyrtec) 10 mg PO DAILY PRN Allergy Symptoms 11/29/20 10/22/21 History cholecalciferol (vitamin D3) 50 50 mcg PO DAILY 08/11/21
--- NOTE | 2021-10-22 10:52 | PM.IMPN ---
Progress Note: A&P Assessment and Plan (1) Choledocholithiasis with obstruction: Qualifiers: Cholecystitis presence: without cholecystitis Qualified Code(s): K80.51 - Calculus of bile duct without cholangitis or cholecystitis with obstruction Code(s): K80.51 - Calculus of bile duct without cholangitis or cholecystitis with obstruction Status: Acute Assessment and Plan: patient presented with right upper quadrant pain, jaundice, and abnormal liver enzymes on outpatient labs CT of abdomen/ pelvis showed cholelithiasis with mild intrahepatic biliary duct dilation MRCP is pending appreciate General surgery and Gastroenterology consultation will likely require ERCP and subsequent cholecystectomy trend LFTs continue IV Zosyn at this time pending further recommendations from General surgery IV fluids while NPO supportive care. Analgesics available as needed (2) Obstructive jaundice: Code(s): K83.1 - Obstruction of bile duct Status: Acute Assessment and Plan: see above (3) anemia: Code(s): O90.81 - Anemia of the puerperium Status: Acute Assessment and Plan: H&H stable with no evidence of active bleeding will increase ferrous sulfate to b.i.d. once this is resumed. Currently on hold while NPO (4) Mother currently breast-feeding: Code(s): Z39.1 - Encounter for care and examination of lactating mother Status: Acute Assessment and Plan: Patient delivered 38 week gestational age infant on 08/20/2021 and is currently had follow-up visit on 09/29/2021 and was cleared spoke with Dr. Cuevas (on-call for patient's OB Dr. Salguero). States she is no longer a patient as she has been cleared. Recommends no instructions to nursing staff to avoid breast feeding during hospitalization. Patient will pump and dump Subjective Date/time seen: 10/22/21 10:52 Interval history: Date of service: 10/22/2021 Candace Green is a 26-year-old female with a history of reason with delivery of 37 week gestation due to preeclampsia on 08/20/2021 currently breast-feeding who is seen in follow-up for choledocholithiasis. she is feeling a bit better today. she continues to complain of right upper quadrant pain that radiates from right sternum all the way around to the right back and shoulder. Currently she is more comfortable and rates her pain as 1-2/10. She denies nausea or vomiting. She had a bowel movement yesterday. States her stools have been mora and talking and that her urine has been dark like sweet tea . she has not noticed any change of her jaundice. She denies shortness breath, cough, chest pain. she is ambulating without difficulty. Denies dysuria or hematuria. No issues with her incision. Review of Systems Review of Systems: All systems reviewed & are unremarkable except as noted in HPI and below Exam Narrative: General: obese, well-appearing 26-year-old female, sitting up in bed, comfortable, NARD Neuro: awake, alert and oriented x4, speech clear, no focal neuro deficits noted HEENMT: normocephalic, atraumatic, EOMI, bilateral scleral icterus Respiratory: clear to auscultation bilaterally, nonlabored breathing Cardio: regular rate, regular rhythm with S1-S2 Abdomen: nondistended, normoactive bowel sounds, soft, tender to palpation in RUQ Extremities: no edema, erythema, or tenderness to palpation, DP pulses 2+ bilaterally Skin: jaundice, no rashes or lesions, warm and dry Psych: appropriate mood and affect, judgment and insight intact Objective Data Vital Signs Vital Signs: Vital Signs - 24 hr 10/21/21 19:08 10/21/21 20:51 10/21/21 21:01 Temperature 98.3 F Pulse Rate 85 76 Respiratory Rate 18 Blood Pressure 133/75 129/77 130/65 Pulse Oximetry 99 99 98 Oxygen Delivery Room Air 10/21/21 22:01 10/21/21 22:31 10/22/21 00
[2021-10-22 11:22] LABS: Bilirubin Direct 1.5 mg/dL (0-0.3); Bilirubin Indirect 1.1 mg/dL (0-1.1); Bilirubin,Total 3.8 mg/dL (0.2-1.3)
[2021-10-22 14:00] VITALS: BP 117/68; PULSE 63; RESP 16; TEMP 36.6; O2SAT 96
[2021-10-22 19:23] VITALS: BP 127/60; PULSE 88; RESP 17; TEMP 36.2; O2SAT 98
[2021-10-22] MEDS: SODIUM CHLORIDE 0.9% IV 1,000 ML 110 ML IV CONT (21:48)
[2021-10-22] MEDS: ONDANSETRON INJ 4 MG/2 ML VIAL IV PUSH (23:46)
[2021-10-23] VITALS (14 sets, daily range): BP systolic 100–143; BP diastolic 60–97; PULSE 63–86; RESP 15–22; TEMP 35.9–36.9; O2SAT 96–100
[2021-10-23 05:12] LABS: Hematocrit 33.6 % (37.0-47.0); Hemoglobin 10.2 g/dL (12.0-15.0); Mean Corpuscular HGB Conc 30.4 g/dl (32-36); Mean Corpuscular Hemoglobin 26.2 pg (26-34); Mean Corpuscular Volume 86.4 fl (80-100); Mean Platelet Volume 11.2 fl (7.4-10.4); Platelet Count Result 300 k/mm3 (150-375); Red Blood Count 3.89 M/mm3 (4.2-5.4); Red Cell Distribution Width 14.6 % (11.5-14.5); White Blood Count 6.7 K/mm3 (4.5-10.0)
[2021-10-23 05:33] LABS: Alanine Aminotransferase 200 U/L (6-35); Albumin Level 3.8 g/dL (3.5-5.1); Alkaline Phosphatase 300 U/L (38-126); Anion Gap 16 mmol/L (8-16); Aspartate Amino Transferase 117 U/L (14-36); Bilirubin,Total 3.9 mg/dL (0.2-1.3); Blood Urea Nitrogen 9 mg/dL (7-17); Calcium 8.3 mg/dL (8.4-10.2); Carbon Dioxide 21 mmol/L (22-30); Chloride 104 mmol/L (98-107); Estimated CRCL calculation 108 ml/min; Estimated Glomerular Filt Rate > 60; Glucose 86 mg/dL (65-110); Potassium 3.6 mmol/L (3.4-5.0); Sodium 141 mmol/L (137-145)
[2021-10-23] MEDS: MORPHINE SULFATE (*CRX) 2 MG/ML INJ IV PUSH (06:04)
[2021-10-23] MEDS: INDOMETHACIN 50 MG SUPP.RECT RECTAL (07:45)
[2021-10-23] MEDS: LACTATED RINGERS 1,000 ML 150 ML IV CONT (07:45)
--- NOTE | 2021-10-23 10:25 | PM.PNGS ---
Progress Note: A&P Assessment and Plan (1) Choledocholithiasis with obstruction: Qualifiers: Cholecystitis presence: without cholecystitis Qualified Code(s): K80.51 - Calculus of bile duct without cholangitis or cholecystitis with obstruction Code(s): K80.51 - Calculus of bile duct without cholangitis or cholecystitis with obstruction Status: Acute Assessment and Plan: s/p ERCP c stone removal, clears for now, recheck labs in am, d/w pt and family timing of interval cholecystectomy (2) Obesity, Class III, BMI 40-49.9 (morbid obesity): Code(s): E66.01 - Morbid (severe) obesity due to excess calories Status: Acute Assessment and Plan: dietary and lifestyle modifications Subjective Subjective Date/Time Seen: 10/23/21 10:25 feels ok, still sleepy from ERCP Review of Systems Review of Systems: All systems reviewed & are unremarkable except as noted in HPI and below Exam Const: General: cooperative, no acute distress and lethargic Resp: Auscultation: clear to auscultation bilaterally Cardio: Rate: regular rate Rhythm: regular rhythm GI: Inspection: normal to inspection and distended GI Palp: Yes abdominal tenderness, Yes Soft to palpation, Yes Tenderness to palpation present (GI), No Guarding due to palpation present (GI) and No Rigid due to palpation Objective Data Vital Signs Vital Signs: Vital Signs - 24 hr 10/22/21 14:00 10/22/21 19:23 10/23/21 02:07 Temperature 36.6 C 36.2 C L Pulse Rate 63 88 Respiratory Rate 16 17 Blood Pressure 117/68 127/60 Pulse Oximetry 96 98 96 Oxygen Delivery Room Air Oxygen Flow Rate 10/23/21 03:10 10/23/21 07:19 10/23/21 09:00 Temperature 36.6 C 36.7 C 36.8 C Pulse Rate 69 69 70 Respiratory Rate 17 20 Blood Pressure 100/78 123/60 135/69 Pulse Oximetry 98 98 100 Oxygen Delivery Room Air Simple Face Mask Oxygen Flow Rate 8 10/23/21 09:10 10/23/21 09:20 10/23/21 09:30 Temperature 36.3 C L Pulse Rate 73 86 83 Respiratory Rate 22 H 18 15 Blood Pressure 138/69 134/79 143/97 H Pulse Oximetry 100 100 98 Oxygen Delivery Simple Face Mask Room Air Room Air Oxygen Flow Rate 8 10/23/21 09:40 10/23/21 09:50 10/23/21 10:00 Temperature 36.2 C L Pulse Rate 79 71 72 Respiratory Rate 16 22 H 17 Blood Pressure 140/81 137/76 130/80 Pulse Oximetry 99 99 98 Oxygen Delivery Room Air Room Air Room Air Oxygen Flow Rate 10/23/21 10:15 Temperature 36.2 C L Pulse Rate 72 Respiratory Rate 16 Blood Pressure 130/68 Pulse Oximetry 100 Oxygen Delivery Oxygen Flow Rate Intake/Output Intake/Output: Intake & Output 10/20/21 10/21/21 10/22/21 10/23/21 23:59 23:59 23:59 23:59 Intake Total 1000 2840 300 Output Total 1700 300 Balance 1000 1140 0 Meds/Results Medications: Active Medications Generic Name Dose Route Start Last Admin Trade Name Freq PRN Reason Stop Dose Admin Piperacillin/Tazobactam/Dextrose 3.375 gm in 50 mls @ 100 mls/hr 10/22/21 06:00 10/23/21 05:55 Zosyn 3.375 Gm/D5w 50ml Pm IVPB Infused Q6H [facility] Infusion Sodium Chloride 1,000 mls @ 110 mls/hr 10/21/21 22:30 10/22/21 21:48 Normal Saline Iv IV CONT 110 mls/hr .Q9H6M [place] Administration Morphine Sulfate 4 mg 10/21/21 22:29 10/22/21 01:00 Morphine Sulfate (*Crx) 4 Mg/Ml Inj IV PUSH 4 mg Q2H PRN Administration Pain Rated 7-10 Morphine Sulfate 2 mg 10/22/21 18:51 10/23/21 06:04 Morphine Sulfate (*Crx) 2 Mg/Ml Inj IV PUSH 2 mg Q4H PRN Administration Pain Rated 4-6 Ondansetron HCl 4 mg 10/21/21 22:29 10/22/21 23:46 Ondansetron Inj 4 Mg/2 Ml Vial IV PUSH 4 mg Q4H PRN Administration Nausea Radiology Results: ITS Impressions Abdomen/Pelvis CT 10/21/21 21:16 IMPRESSION: 1. Cholelithiasis with mild intrahepatic biliary ductal dilation. Correlate with liver function tests and if clinically indicated could consider MRCP for further evaluation. MR
[2021-10-23] MEDS: SODIUM CHLORIDE 0.9% IV 1,000 ML 110 ML IV CONT ×2 (11:32→23:00)
--- NOTE | 2021-10-23 12:53 | PM.IMPN ---
Progress Note: A&P Assessment and Plan (1) Choledocholithiasis with obstruction: Qualifiers: Cholecystitis presence: without cholecystitis Qualified Code(s): K80.51 - Calculus of bile duct without cholangitis or cholecystitis with obstruction Code(s): K80.51 - Calculus of bile duct without cholangitis or cholecystitis with obstruction Status: Acute Assessment and Plan: patient presented with right upper quadrant pain, jaundice, and abnormal liver enzymes on outpatient labs CT of abdomen/ pelvis showed cholelithiasis with mild intrahepatic biliary duct dilation MRCP did not have findings of choledocholithiasis, however ERCP was completed today with sphincterotomy and extraction of stone, debris, and sludge appreciate General surgery and Gastroenterology consultation LFTs persistently elevated with minimal improvement today. Anticipate improvement following ERCP Advanced to clear liquid diet. Continue to advance as tolerated to a low-fat diet. Continue IV fluids until tolerating diet well. supportive care. Analgesics available as needed (2) Acute cholecystitis: Code(s): K81.0 - Acute cholecystitis Status: Acute Assessment and Plan: Evidence of acute cholecystitis on MRCP General surgery following Continue IV Zosyn Planning for cholecystectomy. Timing per General surgery inpatient wishes. Considering inpatient cholecystectomy on 10/25 vs outpatient follow-up for interval cholecystectomy (3) Obstructive jaundice: Code(s): K83.1 - Obstruction of bile duct Status: Acute Assessment and Plan: see above (4) anemia: Code(s): O90.81 - Anemia of the puerperium Status: Acute Assessment and Plan: H&H stable with no evidence of active bleeding resume PO ferrous sulfate, increased to b.i.d. (5) Mother currently breast-feeding: Code(s): Z39.1 - Encounter for care and examination of lactating mother Status: Acute Assessment and Plan: Patient delivered 38 week gestational age on 08/20/2021 and is currently had follow-up visit on 09/29/2021 and was cleared spoke with Dr. Cuevas (on-call for patient's OB Dr. Salguero) on 10/22. States she is no longer a patient as she has been cleared. Recommends no instructions to nursing staff to avoid breast feeding during hospitalization. Patient will pump and dump Subjective Date/time seen: 10/23/21 12:53 Interval history: Date of service: 10/23/2021 Candace Green is a 26-year-old female with a history of reason with delivery of 37 week gestation due to preeclampsia on 08/20/2021 currently breast-feeding who is seen in follow-up for choledocholithiasis. Underwent ERCP today and tolerated this well. Her pain is better at this time. She still has some soreness in the right upper quadrant. She is tolerating clear liquids. Denies nausea or vomiting. Previously was endorsing dark, tea-colored urine but states this is beginning to lighten. She had a loose stool today. No shortness of breath, cough, chest pain. Review of Systems Review of Systems: All systems reviewed & are unremarkable except as noted in HPI and below Exam Narrative: General: obese, well-appearing 26-year-old female, sitting up in bed, comfortable, NARD Neuro: awake, alert and oriented x4, speech clear, no focal neuro deficits noted HEENMT: normocephalic, atraumatic, EOMI, bilateral scleral icterus Respiratory: clear to auscultation bilaterally, nonlabored breathing Cardio: regular rate, regular rhythm with S1-S2 Abdomen: nondistended, normoactive bowel sounds, soft, nontender to palpation Extremities: no edema, erythema, or tenderness to palpation, DP pulses 2+ bilaterally Skin: jaundice, no rashes or lesions, warm and dry Psych: appropriate mood and affect, judgment and insight intact Objective Data Vital Signs
[2021-10-23] MEDS: ACETAMINOPHEN 325 MG TABLET 650 MG PO (15:57)
[2021-10-23] MEDS: SIMETHICONE 80 MG TAB.CHEW PO (17:13)
[2021-10-24 03:28] VITALS: BP 135/80; PULSE 77; RESP 16; TEMP 36.4; O2SAT 97
[2021-10-24] MEDS: HYDROcodone/acetaminophen (*CRX) 5-325 MG TABLET 1 TAB PO ×3 (04:11→23:22)
[2021-10-24] MEDS: SIMETHICONE 80 MG TAB.CHEW PO (04:14)
[2021-10-24 05:03] LABS: Hematocrit 32.2 % (37.0-47.0); Hemoglobin 9.8 g/dL (12.0-15.0); Mean Corpuscular HGB Conc 30.4 g/dl (32-36); Mean Corpuscular Hemoglobin 26.3 pg (26-34); Mean Corpuscular Volume 86.6 fl (80-100); Platelet Count Result 302 k/mm3 (150-375); Red Blood Count 3.72 M/mm3 (4.2-5.4); Red Cell Distribution Width 14.7 % (11.5-14.5)
[2021-10-24] MEDS: MORPHINE SULFATE (*CRX) 2 MG/ML INJ IV PUSH ×2 (05:39→08:15)
[2021-10-24 05:53] LABS: Alanine Aminotransferase 168 U/L (6-35); Albumin Level 3.8 g/dL (3.5-5.1); Alkaline Phosphatase 275 U/L (38-126); Anion Gap 16 mmol/L (8-16); Aspartate Amino Transferase 83 U/L (14-36); Bilirubin,Total 2.7 mg/dL (0.2-1.3); Blood Urea Nitrogen 10 mg/dL (7-17); Calcium 8.7 mg/dL (8.4-10.2); Carbon Dioxide 23 mmol/L (22-30); Chloride 103 mmol/L (98-107); Estimated CRCL calculation 108 ml/min; Estimated Glomerular Filt Rate > 60; Glucose 95 mg/dL (65-110); Potassium 3.6 mmol/L (3.4-5.0); Sodium 142 mmol/L (137-145)
[2021-10-24 06:49] LABS: Lipase 7531 U/L (23-300)
[2021-10-24] MEDS: SODIUM CHLORIDE 0.9% IV 1,000 ML 110 ML IV CONT ×2 (08:14→20:52)
--- NOTE | 2021-10-24 08:40 | WPDGIPROGNO ---
Progress Note: A&P Assessment and Plan (1) Acute pancreatitis: Code(s): K85.90 - Acute pancreatitis without necrosis or infection, unspecified Status: Acute Assessment and Plan: Patient with epigastric pain. Elevated lipase consistent with post ERCP pancreatitis. Felix to keep NPO monitor lipase. Pain control for now. May need to defer cholecystectomy to pancreatitis has resolved. (2) Cholelithiasis: Code(s): K80.20 - Calculus of gallbladder without cholecystitis without obstruction Status: Acute Assessment and Plan: Patient with symptomatic gallstones. Plan for surgical follow-up in cholecystectomy after resolution of pancreatitis. Common bile duct stone removed at time of ERCP. (3) Choledocholithiasis with obstruction: Qualifiers: Cholecystitis presence: without cholecystitis Qualified Code(s): K80.51 - Calculus of bile duct without cholangitis or cholecystitis with obstruction Code(s): K80.51 - Calculus of bile duct without cholangitis or cholecystitis with obstruction Status: Acute Assessment and Plan: Status post ERCP and removal of CBD stone. (4) Obesity, Class III, BMI 40-49.9 (morbid obesity): Code(s): E66.01 - Morbid (severe) obesity due to excess calories Status: Acute Subjective Date/time seen: 10/24/21 08:40 Patient alert this morning. Developed epigastric pain after ERCP yesterday. This is improved on being NPO with pain injections. Lipase elevated consistent with post ERCP pancreatitis. Common bile duct gallstone was removed time of ERCP. Review of Systems Review of Systems: Review of systems noncontributory. Exam Narrative: Physical exam reveals patient to be alert. Vital signs stable. HEENT exam is unremarkable. Patient is anicteric. Lungs are clear to auscultation and percussion. Heart is without murmur. Abdomen obese. Bowel sounds are present soft no tenderness currently having received pain medicine recently. Objective Data Vital Signs Vital Signs: Vital Signs - 24 hr 10/23/21 09:00 10/23/21 09:10 10/23/21 09:20 Temperature 98.3 F Pulse Rate 70 73 86 Respiratory Rate 20 22 H 18 Blood Pressure 135/69 138/69 134/79 Pulse Oximetry 100 100 100 Oxygen Delivery Simple Face Mask Simple Face Mask Room Air Oxygen Flow Rate 8 8 10/23/21 09:30 10/23/21 09:40 10/23/21 09:50 Temperature 97.3 F L Pulse Rate 83 79 71 Respiratory Rate 15 16 22 H Blood Pressure 143/97 H 140/81 137/76 Pulse Oximetry 98 99 99 Oxygen Delivery Room Air Room Air Room Air Oxygen Flow Rate 10/23/21 10:00 10/23/21 10:15 10/23/21 14:31 Temperature 97.1 F L 97.1 F L 96.6 F L Pulse Rate 72 72 85 Respiratory Rate 17 16 16 Blood Pressure 130/80 130/68 129/72 Pulse Oximetry 98 100 96 Oxygen Delivery Room Air Oxygen Flow Rate 10/23/21 16:14 10/23/21 19:10 10/24/21 03:28 Temperature 98.4 F 97 F L 97.6 F Pulse Rate 63 80 77 Respiratory Rate 16 18 16 Blood Pressure 128/66 134/72 135/80 Pulse Oximetry 96 96 97 Oxygen Delivery Oxygen Flow Rate Intake/Output Intake/Output: Intake & Output 10/21/21 10/22/21 10/23/21 10/24/21 23:59 23:59 23:59 23:59 Intake Total 1000 2840 4250 1950 Output Total 1700 700 Balance 1000 1140 3550 1950 Meds/Results Medications: Active Medications Generic Name Dose Route Start Last Admin Trade Name Freq PRN Reason Stop Dose Admin Acetaminophen 650 mg 10/23/21 13:06 10/23/21 15:57 Acetaminophen 325 Mg Tablet PO 650 mg Q4H PRN Administration Pain 1-3 Hydrocodone Bitart/Acetaminophen 1 tab 10/23/21 13:06 10/24/21 04:11 Hydrocodone/Acetaminophen (*Crx) 5-325 Mg Tablet PO 1 tab Q6H PRN Administration Pain Rated 4-6 Piperacillin/Tazobactam/Dextrose 3.375 gm in 50 mls @ 100 mls/hr 10/22/21 06:00 10/24/21 06:07 Zosyn 3.375 Gm/D5w 50ml Pm IVPB Infused Q6H [place] Infusion Sodium Chloride 1,000 mls @ 110 mls/hr 10/21/21
--- NOTE | 2021-10-24 10:39 | WPDANESPN ---
Anes - Prog Note Post-Op Date/Time: 10/24/21 10:39 Cardiovascular status: normal Respiratory status: normal Airway patency: baseline Mental status: baseline Post-Op hydration status: other (IVF infusing. pt reports remains NPO) Vital Signs: Last Vital Signs Temp 97.6 F 10/24/21 03:28 Pulse 77 10/24/21 03:28 Resp 16 10/24/21 03:28 BP 135/80 10/24/21 03:28 Pulse Ox 97 10/24/21 03:28 O2 Del Method Room Air 10/23/21 10:00 O2 Flow Rate 8 10/23/21 09:10 Pain Score (VAS): 4 I/O: Intake & Output 10/23/21 10/24/21 10/24/21 23:59 07:59 15:59 Intake Total 2120 950 1000 Output Total 400 Balance 9384 604 8390 Laboratory Tests 10/24/21 04:45 10/24/21 04:45 10/24/21 10/24/21 04:45 04:45 WBC 8.0 RBC 3.72 L Hgb 9.8 L Hct 32.2 L MCV 86.6 MCH 26.3 MCHC 30.4 L RDW 14.7 H Plt Count 302 MPV 11.0 H Sodium 142 Potassium 3.6 Chloride 103 Carbon Dioxide 23 Anion Gap 16 BUN 10 Creatinine 0.80 Estim Creat Clear Calc 108 Estimated GFR > 60 Glucose 95 Calcium 8.7 Total Bilirubin 2.7 H AST 83 H ALT 168 H Alkaline Phosphatase 275 H Total Protein 7.0 Albumin 3.8 Lipase 7531 H Post-procedural complaints: other (persistent epigastric pain) Patient Feedback: Patient satisfied with anesthetic care.
--- NOTE | 2021-10-24 11:34 | PM.PNGS ---
Progress Note: A&P Assessment and Plan (1) Acute pancreatitis: Code(s): K85.90 - Acute pancreatitis without necrosis or infection, unspecified Status: Acute Assessment and Plan: exam largely benign, cont liquid diet, will recheck enzyme in am (2) Choledocholithiasis with obstruction: Qualifiers: Cholecystitis presence: without cholecystitis Qualified Code(s): K80.51 - Calculus of bile duct without cholangitis or cholecystitis with obstruction Code(s): K80.51 - Calculus of bile duct without cholangitis or cholecystitis with obstruction Status: Acute Assessment and Plan: s/p ERCP and stone removal, will delay interval cholecystectomy secondary to pancreatitis Subjective Subjective Date/Time Seen: 10/24/21 11:34 feels ok, some mild epigastric pain Review of Systems Review of Systems: All systems reviewed & are unremarkable except as noted in HPI and below Exam Const: General: cooperative, comfortable, no acute distress and tired appearing Resp: Auscultation: clear to auscultation bilaterally Cardio: Rate: regular rate Rhythm: regular rhythm GI: Inspection: normal to inspection and distended GI Palp: Yes abdominal tenderness, Yes Soft to palpation, Yes Tenderness to palpation present (GI), No Guarding due to palpation present (GI) and No Rigid due to palpation Objective Data Vital Signs Vital Signs: Vital Signs - 24 hr 10/23/21 14:31 10/23/21 16:14 10/23/21 19:10 Temperature 35.9 C L 36.9 C 36.1 C L Pulse Rate 85 63 80 Respiratory Rate 16 16 18 Blood Pressure 129/72 128/66 134/72 Pulse Oximetry 96 96 96 10/24/21 03:28 Temperature 36.4 C Pulse Rate 77 Respiratory Rate 16 Blood Pressure 135/80 Pulse Oximetry 97 Intake/Output Intake/Output: Intake & Output 10/21/21 10/22/21 10/23/21 10/24/21 23:59 23:59 23:59 23:59 Intake Total 1000 2840 4250 1950 Output Total 1700 700 Balance 1000 1140 3550 1950 Meds/Results Medications: Active Medications Generic Name Dose Route Start Last Admin Trade Name Freq PRN Reason Stop Dose Admin Acetaminophen 650 mg 10/23/21 13:06 10/23/21 15:57 Acetaminophen 325 Mg Tablet PO 650 mg Q4H PRN Administration Pain 1-3 Hydrocodone Bitart/Acetaminophen 1 tab 10/23/21 13:06 10/24/21 04:11 Hydrocodone/Acetaminophen (*Crx) 5-325 Mg Tablet PO 1 tab Q6H PRN Administration Pain Rated 4-6 Piperacillin/Tazobactam/Dextrose 3.375 gm in 50 mls @ 100 mls/hr 10/22/21 06:00 10/24/21 06:07 Zosyn 3.375 Gm/D5w 50ml Pm IVPB Infused Q6H [place] Infusion Sodium Chloride 1,000 mls @ 110 mls/hr 10/21/21 22:30 10/24/21 08:14 Normal Saline Iv IV CONT 110 mls/hr .Q9H6M [place] Administration Morphine Sulfate 2 mg 10/23/21 13:07 10/24/21 05:39 Morphine Sulfate (*Crx) 2 Mg/Ml Inj IV PUSH 2 mg Q4H PRN Administration Pain Rated 7-10 Ondansetron HCl 4 mg 10/21/21 22:29 10/22/21 23:46 Ondansetron Inj 4 Mg/2 Ml Vial IV PUSH 4 mg Q4H PRN Administration Nausea Simethicone 80 mg 10/23/21 15:52 10/24/21 04:14 Simethicone 80 Mg Tab.Chew PO 80 mg Q6HR PRN Administration Gas Discomfort Radiology Results: ITS Impressions Abdomen/Pelvis CT 10/21/21 21:16 IMPRESSION: 1. Cholelithiasis with mild intrahepatic biliary ductal dilation. Correlate with liver function tests and if clinically indicated could consider MRCP for further evaluation. MRCP 10/23/21 08:24 IMPRESSION: 1. Mildly dilated common duct. No choledocholithiasis. 2. Acute cholecystitis. 3. Diffuse hepatic steatosis. Endo Retro Cholangiopancreatogram 10/23/21 12:13 IMPRESSION: 1. Mildly dilated common duct. Please refer to the ERCP procedure note for additional details. Labs Labs: Laboratory Results - last 24 hr 10/24/21 10/24/21 04:45 04:45 WBC 8.0 RBC 3.72 L Hgb 9.8 L Hct 32.2 L MCV 86.6 MCH 26.3 MCHC 30.4 L RDW 14.7 H Plt Coun
[2021-10-24 13:51] VITALS: BP 129/64; PULSE 85; RESP 18; TEMP 36.7; O2SAT 95
--- NOTE | 2021-10-24 14:24 | PM.IMPN ---
Progress Note: A&P Assessment and Plan (1) Choledocholithiasis with obstruction: Qualifiers: Cholecystitis presence: without cholecystitis Qualified Code(s): K80.51 - Calculus of bile duct without cholangitis or cholecystitis with obstruction Code(s): K80.51 - Calculus of bile duct without cholangitis or cholecystitis with obstruction Status: Acute Assessment and Plan: patient presented with right upper quadrant pain, jaundice, and abnormal liver enzymes on outpatient labs CT of abdomen/ pelvis showed cholelithiasis with mild intrahepatic biliary duct dilation ERCP on 10/23 with sphincterotomy and extraction of stone, debris, and sludge appreciate General surgery and Gastroenterology consultation LFTs trending down today supportive care. Analgesics available as needed (2) Acute cholecystitis: Code(s): K81.0 - Acute cholecystitis Status: Acute Assessment and Plan: Evidence of acute cholecystitis on MRCP General surgery following Continue IV Zosyn Will need cholecystectomy. Deferred given onset of pancreatitis. Timing per General surgery. (3) Acute pancreatitis: Code(s): K85.90 - Acute pancreatitis without necrosis or infection, unspecified Status: Acute Assessment and Plan: Post ERCP pancreatitis. Patient with epigastric pain. Lipase 7500 NPO diet. Continue IV fluids Trend lipase GI following (4) Obstructive jaundice: Code(s): K83.1 - Obstruction of bile duct Status: Acute Assessment and Plan: see above Bilirubin trending down. Jaundice appears to be slightly improving (5) anemia: Code(s): O90.81 - Anemia of the puerperium Status: Acute Assessment and Plan: H&H stable with no evidence of active bleeding Continue PO ferrous sulfate, increased to b.i.d. (6) Mother currently breast-feeding: Code(s): Z39.1 - Encounter for care and examination of lactating mother Status: Acute Assessment and Plan: Patient delivered 38 week gestational age infant on 08/20/2021 and is currently had follow-up visit on 09/29/2021 and was cleared spoke with Dr. Cuevas (on-call for patient's OB Dr. Salguero) on 10/22. States she is no longer a patient as she has been cleared. Recommends no pt instructed to avoid breast feeding during hospitalization. Patient will pump and dump Subjective Date/time seen: 10/24/21 14:24 Interval history: Date of service: 10/24/2021 Candace Green is a 26-year-old female with a history of recent with delivery of 37 week gestation due to preeclampsia on 08/20/2021 currently breast-feeding who is seen in follow-up for choledocholithiasis. Developed acute pancreatitis following ERCP. She states last night she woke up out of a sleep around 3:00 a.m. with severe pain that she rated as 9/10. Her pain has improved with analgesics. At this time, her pain is starting to creep back up again and she currently endorses 8 out of 10 epigastric pain. She denies nausea or vomiting. She has been NPO today. Reports 1 formed bowel movement in 1 looser stool yesterday. Denies urinary symptoms. No fevers or chills. No shortness breath, cough, chest pain, palpitations. Ambulating without difficulty. Review of Systems Review of Systems: All systems reviewed & are unremarkable except as noted in HPI and below Exam Narrative: General: obese, well-appearing 26-year-old female, sitting up in bed, comfortable, NARD Neuro: awake, alert and oriented x4, speech clear, no focal neuro deficits noted HEENMT: normocephalic, atraumatic, EOMI, bilateral scleral icterus seems improved from prior exams Respiratory: clear to auscultation bilaterally, nonlabored breathing Cardio: regular rate, regular rhythm with S1-S2 Abdomen: nondistended, normoactive bowel sounds, soft, tender to palpation in epigastric
[2021-10-24 20:23] VITALS: BP 137/73; PULSE 78; RESP 16; TEMP 36.6; O2SAT 96
[2021-10-25 05:15] VITALS: BP 141/69; PULSE 82; RESP 16; TEMP 36.9; O2SAT 96
[2021-10-25 05:26] LABS: Hemoglobin 9.3 g/dL (12.0-15.0); Mean Corpuscular Hemoglobin 26.6 pg (26-34); Mean Platelet Volume 11.2 fl (7.4-10.4); Platelet Count Result 271 k/mm3 (150-375); Red Blood Count 3.49 M/mm3 (4.2-5.4); Red Cell Distribution Width 14.9 % (11.5-14.5); White Blood Count 7.4 K/mm3 (4.5-10.0)
[2021-10-25 05:34] LABS: Alanine Aminotransferase 125 U/L (6-35); Albumin Level 3.5 g/dL (3.5-5.1); Alkaline Phosphatase 222 U/L (38-126); Anion Gap 10 mmol/L (8-16); Aspartate Amino Transferase 54 U/L (14-36); Bilirubin,Total 1.6 mg/dL (0.2-1.3); Blood Urea Nitrogen 9 mg/dL (7-17); Calcium 8.8 mg/dL (8.4-10.2); Carbon Dioxide 23 mmol/L (22-30); Chloride 107 mmol/L (98-107); Estimated CRCL calculation 122 ml/min; Estimated Glomerular Filt Rate > 60; Glucose 79 mg/dL (65-110); Potassium 3.2 mmol/L (3.4-5.0); Sodium 140 mmol/L (137-145)
[2021-10-25] MEDS: SODIUM CHLORIDE 0.9% IV 1,000 ML 110 ML IV CONT (07:19)
--- NOTE | 2021-10-25 08:33 | WPDGIPROGNO ---
Progress Note: A&P Assessment and Plan (1) Acute pancreatitis: Code(s): K85.90 - Acute pancreatitis without necrosis or infection, unspecified Status: Acute Assessment and Plan: Patient with post ERCP pancreatitis now clinically gradually improving. LFTs have begun to improve after ERCP and removal of common duct stone. Plan to advance to a low-fat diet diet as tolerated. (2) Choledocholithiasis with obstruction: Qualifiers: Cholecystitis presence: without cholecystitis Qualified Code(s): K80.51 - Calculus of bile duct without cholangitis or cholecystitis with obstruction Code(s): K80.51 - Calculus of bile duct without cholangitis or cholecystitis with obstruction Status: Acute Assessment and Plan: common duct stone removed at time of ERCP. She does have residual stones in the gallbladder and will need surgical removal under direction of surgical service. (3) Cholelithiasis: Code(s): K80.20 - Calculus of gallbladder without cholecystitis without obstruction Status: Acute Subjective Date/time seen: 10/25/21 08:33 Patient feeling much better today. No longer has abdominal pain. Review of Systems Review of Systems: Review of systems noncontributory. Exam Narrative: Physical exam reveals patient to be alert. Vital signs stable. HEENT exam unremarkable. Patient is anicteric. Lungs are clear to auscultation and percussion. Heart is without murmur or extra sounds. Abdomen bowel sounds present soft nontender with no organomegaly. Modest obesity identified. Objective Data Vital Signs Vital Signs: Vital Signs - 24 hr 10/24/21 13:51 10/24/21 20:23 10/25/21 05:15 Temperature 98.1 F 97.8 F 98.5 F Pulse Rate 85 78 82 Respiratory Rate 18 16 16 Blood Pressure 129/64 137/73 141/69 H Pulse Oximetry 95 96 96 Intake/Output Intake/Output: Intake & Output 10/22/21 10/23/21 10/24/21 10/25/21 23:59 23:59 23:59 23:59 Intake Total 2840 4250 3400 1050 Output Total 1700 700 Balance 1140 3550 3400 1050 Meds/Results Medications: Active Medications Generic Name Dose Route Start Last Admin Trade Name Freq PRN Reason Stop Dose Admin Acetaminophen 650 mg 10/23/21 13:06 10/23/21 15:57 Acetaminophen 325 Mg Tablet PO 650 mg Q4H PRN Administration Pain 1-3 Hydrocodone Bitart/Acetaminophen 1 tab 10/23/21 13:06 10/24/21 23:22 Hydrocodone/Acetaminophen (*Crx) 5-325 Mg Tablet PO 1 tab Q6H PRN Administration Pain Rated 4-6 Piperacillin/Tazobactam/Dextrose 3.375 gm in 50 mls @ 100 mls/hr 10/22/21 06:00 10/25/21 06:00 Zosyn 3.375 Gm/D5w 50ml Pm IVPB Infused Q6H [place] Infusion Sodium Chloride 1,000 mls @ 110 mls/hr 10/21/21 22:30 10/25/21 07:19 Normal Saline Iv IV CONT 110 mls/hr .Q9H6M [place] Administration Morphine Sulfate 2 mg 10/23/21 13:07 10/24/21 05:39 Morphine Sulfate (*Crx) 2 Mg/Ml Inj IV PUSH 2 mg Q4H PRN Administration Pain Rated 7-10 Ondansetron HCl 4 mg 10/21/21 22:29 10/22/21 23:46 Ondansetron Inj 4 Mg/2 Ml Vial IV PUSH 4 mg Q4H PRN Administration Nausea Simethicone 80 mg 10/23/21 15:52 10/24/21 04:14 Simethicone 80 Mg Tab.Chew PO 80 mg Q6HR PRN Administration Gas Discomfort Radiology Results: ITS Impressions Abdomen/Pelvis CT 10/21/21 21:16 IMPRESSION: 1. Cholelithiasis with mild intrahepatic biliary ductal dilation. Correlate with liver function tests and if clinically indicated could consider MRCP for further evaluation. MRCP 10/23/21 08:24 IMPRESSION: 1. Mildly dilated common duct. No choledocholithiasis. 2. Acute cholecystitis. 3. Diffuse hepatic steatosis. Endo Retro Cholangiopancreatogram 10/23/21 12:13 IMPRESSION: 1. Mildly dilated common duct. Please refer to the ERCP procedure note for additional details. Labs Labs: Laboratory Results - last 24 hr 10/25/21 10/25/21 05:03 05:03 WBC 7.4
[2021-10-25 09:40] LABS: Lipase 1630 U/L (23-300)
[2021-10-25] MEDS: POTASSIUM CHLORIDE 20 MEQ TABLET PO (10:32)
--- NOTE | 2021-10-25 13:44 | PM.PNGS ---
Progress Note: A&P Assessment and Plan (1) Acute pancreatitis: Code(s): K85.90 - Acute pancreatitis without necrosis or infection, unspecified Status: Acute Assessment and Plan: Post ERCP pancreatitis. Clinically improving, lipase trending down. Advance to a low fat diet. Okay to discharge today from a surgical standpoint. Will order labs for next Sunday and schedule for interval cholecystectomy as an outpatient pending labs. (2) Choledocholithiasis with obstruction: Qualifiers: Cholecystitis presence: without cholecystitis Qualified Code(s): K80.51 - Calculus of bile duct without cholangitis or cholecystitis with obstruction Code(s): K80.51 - Calculus of bile duct without cholangitis or cholecystitis with obstruction Status: Acute Assessment and Plan: s/p ERCP and stone removal on 10/23 Plan I have discussed the patient's case and plan of care with Dr. Dailey. Subjective Subjective Date/Time Seen: 10/25/21 13:44 Patient reports: no new complaints, feels better, tolerating a regular diet and afebrile Interval history: Chart reviewed. Patient seen and examined. Review of Systems Review of Systems: All systems reviewed & are unremarkable except as noted in HPI and below Exam Const: General: comfortable and no acute distress Nutritional Appearance: obese Orientation/consciousness: patient oriented x3 GI: Inspection: non-distended GI Palp: Yes Soft to palpation, No Tenderness to palpation present (GI), No Guarding due to palpation present (GI) and No Rebound tenderness present Auscultation: normal bowel sounds Skin: General skin exam: normal color Psych: Mental Status: mental status grossly normal Insight: Good insight present (Psych) Objective Data Vital Signs Vital Signs: Vital Signs - 24 hr 10/24/21 13:51 10/24/21 20:23 10/25/21 05:15 Temperature 98.1 F 97.8 F 98.5 F Pulse Rate 85 78 82 Respiratory Rate 18 16 16 Blood Pressure 129/64 137/73 141/69 H Pulse Oximetry 95 96 96 Intake/Output Intake/Output: Intake & Output 10/22/21 10/23/21 10/24/21 10/25/21 23:59 23:59 23:59 23:59 Intake Total 2840 4250 3400 1530 Output Total 1700 700 Balance 1140 3550 3400 1530 Meds/Results Medications: Active Medications Generic Name Dose Route Start Last Admin Trade Name Freq PRN Reason Stop Dose Admin Acetaminophen 650 mg 10/23/21 13:06 10/23/21 15:57 Acetaminophen 325 Mg Tablet PO 650 mg Q4H PRN Administration Pain 1-3 Hydrocodone Bitart/Acetaminophen 1 tab 10/23/21 13:06 10/24/21 23:22 Hydrocodone/Acetaminophen (*Crx) 5-325 Mg Tablet PO 1 tab Q6H PRN Administration Pain Rated 4-6 Piperacillin/Tazobactam/Dextrose 3.375 gm in 50 mls @ 100 mls/hr 10/22/21 06:00 10/25/21 11:14 Zosyn 3.375 Gm/D5w 50ml Pm IVPB 100 mls/hr Q6H [place] Administration Sodium Chloride 1,000 mls @ 110 mls/hr 10/21/21 22:30 10/25/21 07:19 Normal Saline Iv IV CONT 110 mls/hr .Q9H6M [place] Administration Morphine Sulfate 2 mg 10/23/21 13:07 10/24/21 05:39 Morphine Sulfate (*Crx) 2 Mg/Ml Inj IV PUSH 2 mg Q4H PRN Administration Pain Rated 7-10 Ondansetron HCl 4 mg 10/21/21 22:29 10/22/21 23:46 Ondansetron Inj 4 Mg/2 Ml Vial IV PUSH 4 mg Q4H PRN Administration Nausea Simethicone 80 mg 10/23/21 15:52 10/24/21 04:14 Simethicone 80 Mg Tab.Chew PO 80 mg Q6HR PRN Administration Gas Discomfort Radiology Results: ITS Impressions Abdomen/Pelvis CT 10/21/21 21:16 IMPRESSION: 1. Cholelithiasis with mild intrahepatic biliary ductal dilation. Correlate with liver function tests and if clinically indicated could consider MRCP for further evaluation. MRCP 10/23/21 08:24 IMPRESSION: 1. Mildly dilated common duct. No choledocholithiasis. 2. Acute cholecystitis. 3. Diffuse hepatic steatosis. Endo Retro Cholangiopancreatogram 10/23/21 12:13 IMPRESSION: 1. Mildly dilated
--- NOTE | 2021-10-25 13:45 | PC.NURSE ---
1215 - Primary RN requested a visit for a consult. Consulted with patient to assess needs related to , pumping, and answering questions regarding medication. Mother led the conversation with feeding?her and the?experience so far. Resources provided for inpatient, outpatient, and online services using a resource guide. Mother voiced understanding of information and will call if there is a request for assistance. Primary RN was notified of the visit.
[2021-10-25 13:54] VITALS: BP 137/79; PULSE 75; RESP 14; TEMP 36.6; O2SAT 98
--- NOTE | 2021-10-25 15:37 | P.DS_ITS ---
DS: Admitting Diagnosis Discharge Date 10/25/2021 Admitting Diagnosis Obstructive jaundice DS: Discharge Diagnosis Discharge Diagnosis (1) Choledocholithiasis with obstruction: Qualifiers: Cholecystitis presence: without cholecystitis Qualified Code(s): K80.51 - Calculus of bile duct without cholangitis or cholecystitis with obstruction Code(s): K80.51 - Calculus of bile duct without cholangitis or cholecystitis with obstruction Status: Acute Assessment and Plan: patient presented with right upper quadrant pain, jaundice, and abnormal liver enzymes on outpatient labs * CT of abdomen/ pelvis showed cholelithiasis with mild intrahepatic biliary duct dilation * ERCP on 10/23 with sphincterotomy and extraction of stone, debris, and sludge * Patient was seen in consultation by General surgery and Gastroenterology * LFTs with overall improvement (2) Acute cholecystitis: Code(s): K81.0 - Acute cholecystitis Status: Acute Assessment and Plan: Evidence of acute cholecystitis on MRCP * Managed by General surgery * Received IV Zosyn during admission * Will need cholecystectomy. Deferred given onset of pancreatitis. Patient will have outpatient labs on Sunday, 10/31, and then will be contacted by General surgery to schedule outpatient cholecystectomy * Continue low-fat diet discharge * Analgesics as needed for pain. (3) Acute pancreatitis: Code(s): K85.90 - Acute pancreatitis without necrosis or infection, unspecified Status: Acute Assessment and Plan: Post ERCP pancreatitis. * Lipase elevated to 7500 initially. Improved to 1600 on day of discharge * Patient initially made NPO and diet was slowly advanced to low-fat diet which she will continue * Repeat lipase in 1 week. If normalized, will proceed with cholecystectomy (4) Obstructive jaundice: Code(s): K83.1 - Obstruction of bile duct Status: Acute Assessment and Plan: see above * Bilirubin levels with marked improvement down to 1.6 * Clinically, jaundice improved throughout hospitalization (5) anemia: Code(s): O90.81 - Anemia of the puerperium Status: Acute Assessment and Plan: H&H stable with no evidence of active bleeding * Continue PO ferrous sulfate (6) Mother currently breast-feeding: Code(s): Z39.1 - Encounter for care and examination of lactating mother Status: Acute Assessment and Plan: Patient delivered 38 week gestational age on 08/20/2021 and is currently * had follow-up visit on 09/29/2021 and was cleared * spoke with Dr. Cuevas (on-call for patient's OB Dr. Salguero) on 10/22. States she is no longer a patient as she has been cleared. Recommends no * Pt instructed to avoid breast feeding during hospitalization * Discussed need for analgesics on discharge due to pain secondary to acute cholecystitis. Short course of [place] prescribed. Discussed that [place] may appear in breast milk. She will contact her OB or senior talent management consultant prior to resuming DS: Summary Hospital Course Hospital Course: Date of admission: 10/21/2021 Date of discharge: 10/25/2021 Candace Green is a 26-year-old female with a history of reason with delivery of 37 week gestation infant due to preeclampsia on 08/20/2021 currently breast-feeding who presented to the emergency department on 10/21/2021 with complaints of jaundice and pruritus after having outpatient ultrasound which demonstrat
--- NOTE | 2021-10-25 15:37 | PM.DS ---
DS: Admitting Diagnosis Discharge Date 10/25/2021 Admitting Diagnosis Obstructive jaundice DS: Discharge Diagnosis Discharge Diagnosis (1) Choledocholithiasis with obstruction: Qualifiers: Cholecystitis presence: without cholecystitis Qualified Code(s): K80.51 - Calculus of bile duct without cholangitis or cholecystitis with obstruction Code(s): K80.51 - Calculus of bile duct without cholangitis or cholecystitis with obstruction Status: Acute Assessment and Plan: patient presented with right upper quadrant pain, jaundice, and abnormal liver enzymes on outpatient labs CT of abdomen/ pelvis showed cholelithiasis with mild intrahepatic biliary duct dilation ERCP on 10/23 with sphincterotomy and extraction of stone, debris, and sludge Patient was seen in consultation by General surgery and Gastroenterology LFTs with overall improvement (2) Acute cholecystitis: Code(s): K81.0 - Acute cholecystitis Status: Acute Assessment and Plan: Evidence of acute cholecystitis on MRCP Managed by General surgery Received IV Zosyn during admission Will need cholecystectomy. Deferred given onset of pancreatitis. Patient will have outpatient labs on Sunday, 10/31, and then will be contacted by General surgery to schedule outpatient cholecystectomy Continue low-fat diet discharge Analgesics as needed for pain. (3) Acute pancreatitis: Code(s): K85.90 - Acute pancreatitis without necrosis or infection, unspecified Status: Acute Assessment and Plan: Post ERCP pancreatitis. Lipase elevated to 7500 initially. Improved to 1600 on day of discharge Patient initially made NPO and diet was slowly advanced to low-fat diet which she will continue Repeat lipase in 1 week. If normalized, will proceed with cholecystectomy (4) Obstructive jaundice: Code(s): K83.1 - Obstruction of bile duct Status: Acute Assessment and Plan: see above Bilirubin levels with marked improvement down to 1.6 Clinically, jaundice improved throughout hospitalization (5) anemia: Code(s): O90.81 - Anemia of the puerperium Status: Acute Assessment and Plan: H&H stable with no evidence of active bleeding Continue PO ferrous sulfate (6) Mother currently breast-feeding: Code(s): Z39.1 - Encounter for care and examination of lactating mother Status: Acute Assessment and Plan: Patient delivered 38 week gestational age infant on 08/20/2021 and is currently had follow-up visit on 09/29/2021 and was cleared spoke with Dr. Cuevas (on-call for patient's OB Dr. Salguero) on 10/22. States she is no longer a patient as she has been cleared. Recommends no Pt instructed to avoid breast feeding during hospitalization Discussed need for analgesics on discharge due to pain secondary to acute cholecystitis. Short course of [place] prescribed. Discussed that [place] may appear in breast milk. She will contact her OB or testing consultant prior to resuming DS: Summary Hospital Course Hospital Course: Date of admission: 10/21/2021 Date of discharge: 10/25/2021 Candace Green is a 26-year-old female with a history of reason with delivery of 37 week gestation due to preeclampsia on 08/20/2021 currently breast-feeding who presented to the emergency department on 10/21/2021 with complaints of jaundice and pruritus after having outpatient ultrasound which demonstrated cholelithiasis and outpatient labs which demonstrated elevation of liver enzymes. On presentation to the ED, her vital signs were stable, she was afebrile, total bilirubin 4.3, AST 199, ALT 274, ALP 403, and CT of the abdomen/pelvis showed cholelithiasis with mild intrahepatic biliary ductal dilation. She was admitted to the hospitalist service for further evaluation management was seen in consultation by General
== END 2021-10-25 16:00 | disposition home or self-care (01) | DRG 444 ==
LOC: ANHED 20:04 → ANH2MED 23:10
PROVIDERS: Internal Medicine Gastroenterology; Physician Assistant; Surgery; Admitting Provider Internal Medicine; Emergency Provider Emergency Medicine; PCP Physician Assistant Medical; Visit Provider Internal Medicine
PROC: 0FC98ZZ Extirpation of Matter from Common Bile Duct, Via Natural or Artificial Opening Endoscopic (ICD-10-PCS; CPT 43260; principal; 2021-10-23 07:30)
DX: K80.71 Calculus of gallbladder and bile duct without cholecystitis with obstruction (principal); K85.10 Biliary acute pancreatitis without necrosis or infection; Z68.42 Body mass index [BMI] 45.0-49.9, adult; E66.01 Morbid (severe) obesity due to excess calories; F32.A Depression, unspecified; O90.81 Anemia of the puerperium
CPT/HCPCS: 36415; 74177; 74183; 74329; 76376; 80053; 81001; 81025; 82247; 82248; 83605; 83690; 85025; 85027; 85610; 87086; 96361; 96374; 96375; 96376; 99285; A9270; A9577; G0378; J0131; J2270; J2405; J2543; J7030; J7120; Q9967

== ENCOUNTER 2021-10-31 07:28 | Outpatient (CLI) | payer OTHER, SELFPAY ==
[2021-10-31 08:07] LABS: Alanine Aminotransferase 46 U/L (6-35); Albumin Level 4.2 g/dL (3.5-5.1); Alkaline Phosphatase 164 U/L (38-126); Anion Gap 13 mmol/L (8-16); Aspartate Amino Transferase 34 U/L (14-36); Bilirubin,Total 0.6 mg/dL (0.2-1.3); Blood Urea Nitrogen 13 mg/dL (7-17); Carbon Dioxide 25 mmol/L (22-30); Chloride 103 mmol/L (98-107); Estimated Glomerular Filt Rate > 60; Glucose 116 mg/dL (65-110); Lipase 546 U/L (23-300); Sodium 141 mmol/L (137-145)
[2021-10-31 08:09] LABS: Amylase 76 U/L (30-110)
== END 2021-10-31 07:29 | disposition home or self-care (01) ==
PROVIDERS: PCP Family Medicine; Referring Provider Surgery; Visit Provider Nurse Practitioner Family
DX: K85.90 Acute pancreatitis without necrosis or infection, unspecified (principal); K80.51 Calculus of bile duct without cholangitis or cholecystitis with obstruction
CPT/HCPCS: 36415; 80053; 82150; 83690

== ENCOUNTER 2021-11-01 01:15 | Day surgery (SDC) | payer OTHER, SELFPAY ==
[2021-10-28 14:24] VITALS: BMI 46.5
--- NOTE | 2021-10-28 14:25 | SUR.PREOP ---
Report to the Outpatient Waiting Room, entrance under the green pavilion located off [facility], at time _1130 on date _11/01/21 . OR Time: __1;30 pm . Time changes happen often and if your time is changed the preop area will call you the afternoon before. - You and your visitor will be asked to self-screen and do not enter if you have any COVID symptoms. - Only one visitor and NO children visitors are allowed at this time. - The patient visitor is requested to leave or wait in car when not with patient due to restrictions. - A mask is required within the hospital. Patients may have clear liquids (water, carbonated beverages, clear teas, apple juice) until 3 hours prior to surgery with a maximum of 20 ounces. - No food from midnight until time of surgery - Infants may have breast milk until 4 hours before surgery, formula 6 hours prior to surgery. - Children will be allowed to drink immediately following surgery. If applicable, please bring a bottle or sippy cup to assist with drinking. Juice, water, soda, and popsicles are readily available. For infants on formula, please bring formula the day of surgery. Pacifiers are allowed. Take the following medications with a SIP of water the morning of surgery: _sertiline Medications to discontinue per physician n/a Date to take last dose__n/a Please no make-up, nail french, hairspray, perfume, deodorant, or body powder the day of surgery. No jewelry (including any body piercings) or valuables the day of surgery, leave them at home. Please take a shower or bath the night before, or the morning of, surgery with an antibacterial soap. Wear comfortable, loose fitting clothing. Children are encouraged to wear pajamas. HIBICLENS SHOWER AM OF SURGERY. - Jewelry must be removed prior to entering the operating room. Rings and piercings that are not removed may be cut off. - The hospital will not accept responsibility for valuables. - Please leave all valuables, including medications, at home the day of surgery. If you are going home after surgery, a licensed m48/m60 tank driver must drive you home. - NO public transportation without another adult. - We recommend that an adult stay with you for 24 hours following discharge. - We also recommend that you do not drive, make important decision, drink alcoholic beverages, or take any drugs that were not prescribed by your health care provider for at least 24 hours after your discharge time. For Pediatric surgeries, we recommend two adults accompany the child home (only one inside the building at this time). Follow any additional instructions given to you from your surgeon. If you or anyone in your household have experienced Covid symptoms in the past week, please notify your surgeon or the nurse liaison at the phone number below for possible testing. Telephone instructions given to _bibi talamantes and asked if any additional questions and then verbalized understanding. Patient advised to call surgeon office or pre surgery nurse liaison [phone] if any additional questions.
[2021-11-01] VITALS (7 sets, daily range): BP systolic 113–138; BP diastolic 61–81; PULSE 67–80; RESP 10–19; TEMP 36.1–36.3; O2SAT 97–100
--- NOTE | 2021-11-01 10:47 | WPDANESEPPF ---
Anes - Initial Pre Proc Eval Procedure: Operation Date: 11/01/21 13:30 Proposed Procedures p Laparoscopic Cholecystectomy - Arlen Dailey MD Date/Time: 11/01/21 10:47 Surgeon: Arlen Dailey MD Pre Op Diagnosis: Choledocholithiasis, Cholelithiasis Patient Data Age: 26 Gender: F Height: 1.55 m Weight: 111.81 kg Allergies Allergy/AdvReac Type Severity Reaction Status Date / Time No Known Allergies Allergy Verified 10/28/21 13:59 Home Medications Medication Instructions Recorded Confirmed Type cetirizine 10 mg tablet (Zyrtec) 10 mg PO DAILY PRN Allergy Symptoms 11/29/20 10/28/21 History cholecalciferol (vitamin D3) 50 50 mcg PO DAILY 08/11/21 10/28/21 History mcg (2,000 unit) tablet (Vitamin D3) sertraline 100 mg tablet 150 mg PO DAILY #135 tabs 09/16/21 10/28/21 Rx drospirenone (contraceptive) 4 mg 4 mg PO DAILY 24 days #3 packets 09/29/21 10/28/21 Rx (28) tablet (Slynd) ferrous sulfate 325 mg (65 mg 325 mg PO DAILY 10/22/21 10/28/21 History iron) tablet Patient hx anesthesia problems: none Family hx anesthesia problems: none Results Review: All pre-operative results and documents have been reviewed as part of the pre-operative evaluation. [facility] Past Medical History Medical History (Updated 10/24/21 @ 08:42 by Matt Bess MD) Depression Obesity, Class III, BMI 40-49.9 (morbid obesity) Pre-eclampsia Seasonal allergies Vitamin D deficiency Surgical History Surgical History History of section 08/20/21 [place] teeth removed 2014 Family History Family History Grandparent Diabetes mellitus Family history of lung cancer Mother Diabetes mellitus Melanoma Social History Social History Social History: Code status: Full code Surrogate decision maker: Smoking status: Never smoker Second hand tobacco smoke exposure: No Alcohol intake: current Drinks per week: 1 Alcohol use details: less than 1 drink a week Substance use: never Substance use type: does not use Living arrangements: with family Additional living arrangements comments: She lives at home with her and her 2-month-old son. Additional occupation/education comments: She works for the [employer]. She is currently on maternity leave. Gender identity (if verbalized by the patient): Female Spiritual care concerns: No Anes - Eval Final PreProcedure Day of Procedure 11/01/21 10:47 Patient weight: morbidly obese Heart: regular rate and rhythm Lungs: clear to auscultation Airway: Mallampati scale class II Neurological: alert and oriented Last oral intake: >/= 8 hours ASA classification: III Emergent: no Anesthetic plan: proceed Anesthesia type and monitoring: general GIVS and standard monitoring Results Review: All pre-operative results and documents have been reviewed as part of the pre-operative evaluation. Informed Consent: The patient's anesthetic plan and its attendant risks and benefits were discussed with the patient/family/POA. Questions were solicited and answers provided to the satisfaction of the patient/family/POA.
--- NOTE | 2021-11-01 11:42 | WPDHPUPDATE1 ---
History and Physical Update Update Date/Time: 11/01/21 11:42 History and Physical has been reviewed, including an updated exam of the patient. There are NO changes in the patient's condition. Risks, benefits, and alternatives have been discussed and questions answered. Patient agrees to proceed with procedure.
[2021-11-01] MEDS: LACTATED RINGERS 1,000 ML 30 ML IV CONT (12:44)
[2021-11-01] MEDS: ACETAMINOPHEN 500 MG TABLET 1000 MG PO (12:45)
[2021-11-01] MEDS: KETOROLAC 15 MG/ML VIAL (*BKC) IV PUSH (12:45)
[2021-11-01] MEDS: ceFAZolin 2 GM/D5W 50 ML 2 GM/50 ML BAG IVPB (12:52)
[2021-11-01] MEDS: BUPIVACAINE/EPINEPHRINE 0.25% 50 ML VIAL INFILTRATE (13:14)
--- NOTE | 2021-11-01 13:39 | W.PM.PROC2 ---
Procedure Note - Detailed Date of Procedure 11/01/21 Pre-op Diagnosis acute cholecystitis, choledocholithiasis Post-op Diagnosis Same Procedure Performed Laparoscopic cholecystectomy Surgeon Arlen Dailey MD Anesthesia General Indications 26 y/o F presenting c acute cholecystitis, choledocholithiasis. Pt s/p ERCP c stone removal. Pt now here for interval cholecystectomy Findings cholecystitis, cholelithiasis Description of Procedure The patient was taken to the operating room placed in the supine position. After adequate induction of general anesthesia, the patient was prepped and draped in normal sterile fashion. A time-out was then performed to verify the patient's identity as well as the procedure being performed. I then made a 5 mm incision in the infraumbilical region. Through this, a Veress needle was placed into the peritoneal cavity and CO2 gas was then insufflated. After adequate pneumoperitoneum was achieved, the Veress needle was removed and a 5 mm optiview trocar was placed through this incision under direct visualization. I then placed the laparoscope through this trocar site and under direct visualization placed a further 12 mm subxiphoid port as well as 2 additional 5 mm ports in the right upper abdomen. The gallbladder was then identified and was noted to be moderately inflamed, distended, and full of gallstones. I was able to place a grasper at the dome of the gallbladder and this was retracted anterior and cephalad up over the liver. A 2nd retractor was then placed at the infundibulum and retracted laterally, this allowed visualization of the triangle of Calot. I then was able to visualize the cystic duct in its entirety from its proximal insertion into the gallbladder, to its distal junction with the common hepatic/common bile duct junction. At this point, I carefully skeletonized the proximal cystic duct with the [place] dissector. I then clipped and transected the proximal cystic duct. Next I visualized the cystic artery. Again the artery was skeletonized, clipped, and transected. I then used the Bovie cautery to take down the peritoneal attachments of the gallbladder off the liver bed. This was somewhat difficult given the amount of inflammation in the posterior space. Once the gallbladder specimen was completely detached, an endo-pouch was placed through the 12 mm port site. I then placed the gallbladder specimen into the Endo pouch and removed the endo-pouch from the 12 mm port site. The specimen will now be sent to pathology for further review. I then copiously irrigated the right upper quadrant. Some mild oozing was noted in the liver bed and this was controlled with the bovie cautery. Hemostasis was noted in the liver bed, the clips were noted to be in good position on both the cystic duct stump and the cystic artery stump. No other pathology was noted in the right upper quadrant. I then moved the laparoscope to the subxiphoid port. No iatrogenic injury or other pathology was noted in the lower abdomen. I then closed the 12 mm trocar site under direct visualization using the Tim cone and 0 Vicryl suture. At this point, the abdomen was desufflated and all ports removed. All port sites were then closed with 4.O Monocryl subcuticular sutures. Dermabond was placed on each incision. The patient tolerated the procedure well, was extubated in the operating room postoperative and will be transferred to the recovery room in stable condition Estimated Blood Loss 10 Drains No Packing No Pathology Yes Complications No immediate complications Condition Stable Disposition PACU [facility] Billing Surgery - Charge Forward: Surgery Billing
[2021-11-01] MEDS: oxyCODONE HCL (*CRX) 5 MG TAB IR PO (14:54)
== END 2021-11-01 15:35 | disposition home or self-care (01) ==
PROVIDERS: PCP Family Medicine; Visit Provider Surgery
PROC: 0FT44ZZ Resection of Gallbladder, Percutaneous Endoscopic Approach (ICD-10-PCS; CPT 47562; principal; 2021-11-01 13:30)
DX: K80.10 Calculus of gallbladder with chronic cholecystitis without obstruction (principal); F32.A Depression, unspecified; E55.9 Vitamin D deficiency, unspecified; E66.01 Morbid (severe) obesity due to excess calories; Z68.42 Body mass index [BMI] 45.0-49.9, adult
CPT/HCPCS: 47562; 36415; 86850; 86900; 86901; 88304; A9270; J0690; J1200; J1885; J2250; J2405; J2704; J2710; J3010; J7030; J7120

== ENCOUNTER 2022-05-02 13:02 | Outpatient (RCR) | payer OTHER, SELFPAY ==
[2022-05-02 13:19] VITALS: BMI 48.6
[2022-05-02 14:05] VITALS: BMI 48.6
== END 2022-07-18 08:57 | disposition home or self-care (01) ==
LOC: ANHDMC 13:02
PROVIDERS: PCP Family Medicine; Visit Provider Physician Assistant Medical
DX: E66.01 Morbid (severe) obesity due to excess calories (principal); Z71.3 Dietary counseling and surveillance
CPT/HCPCS: 97802

== ENCOUNTER 2023-12-06 14:30 | Outpatient (RCR) | payer OTHER, SELFPAY ==
[2023-09-18 14:01] VITALS: BMI 48.0
== END 2023-12-10 10:14 | disposition home or self-care (01) ==
LOC: ANHDMC 14:30
PROVIDERS: PCP Family Medicine; Visit Provider Physician Assistant Medical
DX: E66.01 Morbid (severe) obesity due to excess calories (principal); Z71.3 Dietary counseling and surveillance
CPT/HCPCS: 97802